=== PATIENT | female | born 1970 | race Caucasian/White ===

== ENCOUNTER 2017-09-12 15:19 | Emergency (ER) | payer OTHER ==
--- NOTE | 2017-09-12 16:56 | EDM.PDOC ---
ED HPI GENERAL MEDICAL PROBLEM - General Chief Complaint: Medication Administration Stated Complaint: MED REFILL Time Seen by Provider: 09/12/17 16:52 Source of Information: Reports: Patient - History of Present Illness INITIAL COMMENTS - FREE TEXT/NARRATIVE: HISTORY AND PHYSICAL: History of present illness: [ Patient presents with history of asthma, she has ran out of her medications Ventolin and albuterol neb treatments she requests refills She states that she does feel little chest tightness but she has been out of medicine for several days she takes expanding occasions routinely on a scheduled basis due to her asthma she is offered a chest x-ray which he refused No fever nausea vomiting chills sweats no chest pain shortness breath headache dizziness palpitation about a urine symptoms ] Is in town on vacation and plans to return to [facility] [place] Review of systems: As per history of present illness and below otherwise all systems reviewed and negative. Past medical history: As per history of present illness and as reviewed below otherwise noncontributory. Surgical history: As per history of present illness and as reviewed below otherwise noncontributory. Social history: No reported history of drug or alcohol abuse. Family history: As per history of present illness and as reviewed below otherwise noncontributory. Physical exam: HEENT: Atraumatic, normocephalic, pupils reactive, negative for conjunctival pallor or scleral icterus, mucous membranes moist, throat clear, neck supple, nontender, trachea midline. Lungs: Clear to auscultation, breath sounds equal bilaterally, chest nontender. Heart: S1S2, regular, negative for clicks, rubs, or JVD. Abdomen: Soft, nondistended, nontender. Negative for masses or hepatosplenomegaly. Negative for costovertebral tenderness. Pelvis: Stable nontender. Genitourinary: Deferred. Rectal: Deferred. Extremities: Atraumatic, negative for cords or calf pain. Neurovascular unremarkable. Neuro: Awake, alert, oriented. Cranial nerves II through XII unremarkable. Cerebellum unremarkable. Motor and sensory unremarkable throughout. Exam nonfocal. Diagnostics: []Patient refuses any diagnostic workup/imaging Therapeutics: []HFA 200 count 4 times a day when necessary Albuterol neb one box 40 count Impression: [Chronic asthma] Definitive disposition and diagnosis as appropriate pending reevaluation and review of above. 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 Musculoskeletal History: Reports: None Neurological History: Reports: None Psychiatric History: Reports: None Endocrine/Metabolic History: Reports: None Hematologic History: Reports: None Immunologic History: Reports: None Oncologic (Cancer) History: Reports: None Dermatologic History: Reports: None - Infectious Disease History Infectious Disease History: Reports: Chicken Pox - Past Surgical History Head Surgeries/Procedures: Reports: None Female Surgical History: Reports: Tubal Ligation Social & Family History - Family History Family Medical History: Noncontributory - Tobacco Use Smoking Status *Q: Never Smoker Second Hand Smoke Exposure: No - Caffeine Use Caffeine Use: Reports: Energy Drinks - Alcohol Use Days Per Week of Alcohol Use: 7 Number of Drinks Per Day: 1 Total Drinks Per Week: 7 - Recreational Drug Use Recreational Drug Use: No - Living Situation & Occupation Living situation: Reports: Occupation: Employed ED ROS GENERAL - Review of Systems Review Of Systems: ROS reveals no pertinent complaints other than HPI. ED EXAM, GENERAL - Physical Exam Exam: See Below Course - Vital Signs Last Recorded V/S: Last Vital Signs Temp 96.9 F 09/12/17 16:03 Pulse 92 09/12/17 16:03 Resp 14 09/12/17 16:03 BP 132/102 H 09/12/17 16:03 Pulse Ox 95 09/12/17 16:03 Departure - Departure Time of Disposition: 16:55 Disposition: Home, Self-Care 01 Condition: Good Clinical Impression: Asthma Qualifiers: Asthma severity: moderate persistent Asthma complication type: uncomplicated Qualified Code(s): J45.40 - Moderate persistent asthma, uncomplicated - Discharge Information Instructions: Medicine Refill at the Emergency Department Referrals: PCP,None [Primary Care Provider] - Forms: ED Department Discharge Additional Instructions: Medications as prescribed Return if symptoms persist or worsen Follow-up with primary care on return home next week The following information is given to patients seen in the emergency department who are being discharged to home. This information is to outline your options for follow-up care. We provide all patients seen in our emergency department with a follow-up referral. The need for follow-up, as well as the timing and circumstances, are variable depending upon the specifics of your emergency department visit. If you don't have a primary care physician on staff, we will provide you with a referral. We always advise you to contact your personal physician following an emergency department visit to inform them of the circumstance of the visit and for follow-up with them and/or the need for any referrals to a consulting specialist. The emergency department will also refer you to a specialist when appropriate. This referral assures that you have the opportunity for follow-up care with a specialist. All of these measure are taken in an effort to provide you with optimal care, which includes your follow-up. Under all circumstances we always encourage you to contact your private physician who remains a resource for coordinating your care. When calling for follow-up care, please make the office aware that this follow-up is from your recent emergency room visit. If for any reason you are refused follow-up, please contact the [facility] emergency department at and asked to speak to the emergency department charge nurse.
[2017-09-12 17:01] VITALS: BP 130/78
== END 2017-09-12 16:56 | disposition home or self-care (01) ==
LOC: MW.ED 15:19
DX: J45.40 Moderate persistent asthma, uncomplicated (principal)
CPT/HCPCS: 99281

== ENCOUNTER 2018-04-16 05:12 | Emergency (ER) | payer MEDICAID, OTHER ==
[2018-04-16] MEDS ORDERED: Albuterol/Ipratropium 3.0-0.5 MG/3 ML Neb Soln NEB ONE (05:32)
[2018-04-16] MEDS ORDERED: methylPREDNISolone Sodium Succinate 125 MG/2 ML SDV IM ONE (05:32)
--- NOTE | 2018-04-16 05:36 | EDM.PDOC ---
ED HPI GENERAL MEDICAL PROBLEM - General Chief Complaint: Respiratory Problem Stated Complaint: ASTHMA Time Seen by Provider: 04/16/18 05:19 - History of Present Illness INITIAL COMMENTS - FREE TEXT/NARRATIVE: HISTORY AND PHYSICAL: History of present illness: The patient is a 47-year-old female with a history of asthma who is here from [facility] and states that she ran out of her Combivent and Atrovent about one week ago and has had progressively worsening shortness of breath dry hacking cough and wheezing. The patient has a nebulizer machine with albuterol she has been using but she feels that without the Atrovent her asthma has flared up. 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 Patient says that she does not have a local provider here even though she plans on staying here for some time. She feels that if she had her inhalers that this would not have flared up. The patient does not smoke nor is she around smokers on a regular basis Review of systems: As per history of present illness and below otherwise all systems reviewed and negative. Past medical history: As per history of present illness and as reviewed below otherwise noncontributory. Surgical history: As per history of present illness and as reviewed below otherwise noncontributory. Social history: No reported history of drug or alcohol abuse. Family history: As per history of present illness and as reviewed below otherwise noncontributory. Physical exam: General: Well-developed well-nourished thin female who is nontoxic and has a dry hacking cough on my evaluation. Vital signs are noted by me HEENT: Atraumatic, normocephalic, negative for conjunctival pallor or scleral icterus, mucous membranes moist, throat clear, neck supple, nontender, trachea midline. Lungs: Bilateral expiratory wheezing with decent air exchange bilaterally and no work of breathing or sensory muscle use, breath sounds equal bilaterally, chest nontender. Heart: S1S2, regular rate and rhythm no murmurs Abdomen: Soft, nondistended, nontender. NABS. Pelvis: Deferred Genitourinary: Deferred. Rectal: Deferred. Extremities: Atraumatic, negative for cords or calf pain. Neurovascular unremarkable. Neuro: Awake, alert, oriented. Cranial nerves II through XII unremarkable. Cerebellum unremarkable. Motor and sensory unremarkable throughout. Exam nonfocal. Diagnostics: [] Therapeutics: DuoNeb Solu-Medrol After the DuoNeb the patient is clear without any wheezing and feels much improved. I will give her refills on her Combivent and Advair as well as of the role for her nebulizer machine and prednisone taper. Impression: Acute asthma exacerbation, medication refill Definitive disposition and diagnosis as appropriate pending reevaluation and review of above. headache Pain Score (Numeric/FACES): 8 - Related Data Allergies Allergy/AdvReac Type Severity Reaction Status Date / Time No Known Allergies Allergy Verified 04/16/18 05:25 Home Meds: Home Meds Albuterol [Ventolin HFA] 2 puff INH Q6H PRN #1 inhaler 02/15/16 [Rx] Fluticasone/Salmeterol [Advair Hfa 230-21 Mcg Inhaler] 1 puff INH BID 09/12/17 [ History] Albuterol/Ipratropium [Combivent Respimat] 1 inh INH QID 04/16/18 [History] Past Medical History HEENT History: Reports: None Cardiovascular History: Reports: None Respiratory History: Reports: Asthma Gastrointestinal History: Reports: None Genitourinary History: Reports: None 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 Musculoskeletal History: Reports: None Neurological History: Reports: None Psychiatric History: Reports: None Endocrine/Metabolic History: Reports: None Hematologic History: Reports: None Immunologic History: Reports: None Oncologic (Cancer) History: Reports: None Dermatologic History: Reports: None - Infectious Disease History Infectious Disease History: Reports: Chicken Pox - Past Surgical History Head Surgeries/Procedures: Reports: None Respiratory Surgical History: Reports: None Female Surgical History: Reports: Tubal Ligation Social & Family History - Family History Family Medical History: Noncontributory - Tobacco Use Smoking Status *Q: Never Smoker Second Hand Smoke Exposure: No - Caffeine Use Caffeine Use: Reports: Coffee, Soda - Recreational Drug Use Recreational Drug Use: Yes - Living Situation & Occupation Living situation: Reports: Occupation: Employed ED ROS GENERAL - Review of Systems Review Of Systems: ROS reveals no pertinent complaints other than HPI. ED EXAM, GENERAL - Physical Exam Exam: See Below (See dictation) Course - Vital Signs Last Recorded V/S: Last Vital Signs Temp 36.0 C 04/16/18 05:22 Pulse 98 04/16/18 05:22 Resp 21 H 04/16/18 05:22 BP 155/98 H 04/16/18 05:22 Pulse Ox 92 L 04/16/18 05:22 - Orders/Labs/Meds Orders: Active Orders 24 hr Category Date Time Status RT Aerosol Therapy [RC] ASDIRECTED Care 04/16/18 05:33 Active Meds: Medications Discontinued Medications Generic Name Dose Route Start Last Admin Trade Name Anuj PRN Reason Stop Dose Admin Albuterol/Ipratropium 3 ml 04/16/18 05:32 04/16/18 05:37 Duoneb 3.0-0.5 Mg/3 Ml NEB 04/16/18 05:33 3 ml ONETIME ONE Administration Methylprednisolone Sodium Succinate 125 mg 04/16/18 05:32 04/16/18 05:35 Solu-Medrol IM 04/16/18 05:33 125 mg ONETIME ONE Administration Departure - Departure Time of Disposition: 06:02 Disposition: Home, Self-Care 01 Condition: Good Clinical Impression: Medication refill Acute asthma exacerbation Qualifiers: Asthma severity: moderate Asthma persistence: unspecified Qualified Code(s): J45.901 - Unspecified asthma with (acute) exacerbation - Discharge Information Referrals: PCP,None [Primary Care Provider] - Forms: ED Department Discharge Additional Instructions: The following information is given to patients seen in the emergency department who are being discharged to home. This information is to outline your options for follow-up care. We provide all patients seen in our emergency department with a follow-up referral. The need for follow-up, as well as the timing and circumstances, are variable depending upon the specifics of your emergency department visit. If you don't have a primary care physician on staff, we will provide you with a referral. We always advise you to contact your personal physician following an emergency department visit to inform them of the circumstance of the visit and for follow-up with them and/or the need for any referrals to a consulting specialist. The emergency department will also refer you to a specialist when appropriate. This referral assures that you have the opportunity for followup care with a specialist. All of these measure are taken in an effort to provide you with optimal care, which includes your followup. Under all circumstances we always encourage you to contact your private physician who remains a resource for coordinating your care. When calling for followup care, please make the office aware that this follow-up is from your recent emergency room visit. If for any reason you are refused follow-up, please contact the [facility] emergency department at and ask to speak to the emergency department charge nurse. [facility] Primary care- Internal Medicine and Family [address] [address] Please use all medications as prescribed and please call and schedule a follow- up appointment in our clinic. Call at 8:00 this morning and see your emergency department patient and they will schedule a follow-up in the next few days. Return to ER as needed and as discussed. Please try to avoid environmental irritants and push hydration. - My Orders Last 24 Hours: My Active Orders 04/16/18 05:33 RT Aerosol Therapy [RC] ASDIRECTED - Assessment/Plan Last 24 Hours: My Active Orders 04/16/18 05:33 RT Aerosol Therapy [RC] ASDIRECTED
[2018-04-16 06:14] VITALS: BP 146/97
== END 2018-04-16 06:14 | disposition home or self-care (01) ==
LOC: MW.ED 05:12
DX: J45.901 Unspecified asthma with (acute) exacerbation (principal); Z76.0 Encounter for issue of repeat prescription; Z79.899 Other long term (current) drug therapy
CPT/HCPCS: 99285; J2930

== ENCOUNTER 2018-04-23 00:27 | Emergency (ER) | payer MEDICAID ==
--- NOTE | 2018-04-23 01:05 | EDM.PDOC ---
ED HPI GENERAL MEDICAL PROBLEM - General Chief Complaint: General Stated Complaint: ASTHMA Time Seen by Provider: 04/23/18 00:55 Source of Information: Reports: Patient History Limitations: Reports: No Limitations - History of Present Illness INITIAL COMMENTS - FREE TEXT/NARRATIVE: HISTORY AND PHYSICAL: History of present illness: 47-year-old female presenting the emergency department with chief complaint of running out of medication with past medical history of asthma. Patient has a history of asthma and is here from [facility]. She ran out of her albuterol and states that she still has Combivent left. She does need a new prescription for the albuterol nebulized solution. Currently denies any significant shortness of breath and has been doing okay with her medications. She plans to see a primary care provider this week. Main reason why she came in is because she only has 1 albuterol via left and she is worried that she may have not be able to make it through the night if she has any exacerbations. Currently denies any chest pain, palpitations, shortness breath, syncopal axis, no focal deficits. Review of systems: As per history of present illness and below otherwise all systems reviewed and negative. Past medical history: As per history of present illness and as reviewed below otherwise noncontributory. Surgical history: As per history of present illness and as reviewed below otherwise noncontributory. Social history: No reported history of drug or alcohol abuse. Family history: As per history of present illness and as reviewed below otherwise noncontributory. Physical exam: HEENT: Atraumatic, normocephalic, pupils reactive, negative for conjunctival pallor or scleral icterus, mucous membranes moist, throat clear, neck supple, nontender, trachea midline. Lungs: Clear to auscultation, breath sounds equal bilaterally, chest nontender. Heart: S1S2, regular, negative for clicks, rubs, or JVD. Abdomen: Soft, nondistended, nontender. Negative for masses or hepatosplenomegaly. Negative for costovertebral tenderness. Pelvis: Stable nontender. Genitourinary: Deferred. Rectal: Deferred. Extremities: Atraumatic, negative for cords or calf pain. Neurovascular unremarkable. Neuro: Awake, alert, oriented. Cranial nerves II through XII unremarkable. Cerebellum unremarkable. Motor and sensory unremarkable throughout. Exam nonfocal. Diagnostics: [] Therapeutics: Albuterol neb Impression: Asthma Noncompliance Plan: Patient has been seen here previously and has not made a follow-up appointment yet. She states she is not able to afford some of the medications including Advair. She states that she is taking albuterol and Combivent did refill her albuterol nebulized solution prescription and instructed her to follow-up with primary care this week which she stated she would. Instructed to return department if she had any new or worsening symptoms. Definitive disposition and diagnosis as appropriate pending reevaluation and review of above. - Related Data Allergies Allergy/AdvReac Type Severity Reaction Status Date / Time No Known Allergies Allergy Verified 04/23/18 00:38 Home Meds: Home Meds Albuterol [Ventolin HFA] 2 puff INH Q6H PRN #1 inhaler 02/15/16 [Rx] Fluticasone/Salmeterol [Advair Hfa 230-21 Mcg Inhaler] 1 puff INH BID 09/12/17 [ History] Albuterol/Ipratropium [Combivent Respimat] 1 inh INH QID 04/16/18 [History] Past Medical History HEENT History: Reports: None Cardiovascular History: Reports: Hypertension Respiratory History: Reports: Asthma Gastrointestinal History: Reports: None Genitourinary History: Reports: None 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 Musculoskeletal History: Reports: None Neurological History: Reports: None Psychiatric History: Reports: None Endocrine/Metabolic History: Reports: None Hematologic History: Reports: None Immunologic History: Reports: None Oncologic (Cancer) History: Reports: None Dermatologic History: Reports: None - Infectious Disease History Infectious Disease History: Reports: Chicken Pox - Past Surgical History Head Surgeries/Procedures: Reports: None Respiratory Surgical History: Reports: None Female Surgical History: Reports: Tubal Ligation Social & Family History - Family History Family Medical History: Noncontributory - Tobacco Use Smoking Status *Q: Never Smoker - Caffeine Use Caffeine Use: Reports: Coffee, Soda - Recreational Drug Use Recreational Drug Use: No - Living Situation & Occupation Living situation: Reports: Occupation: Employed ED ROS GENERAL - Review of Systems Review Of Systems: ROS reveals no pertinent complaints other than HPI. ED EXAM, GENERAL - Physical Exam Exam: See Below Course - Vital Signs Last Recorded V/S: Last Vital Signs Temp 96.9 F 04/23/18 00:39 Pulse 94 04/23/18 00:39 Resp 18 04/23/18 00:39 BP 164/107 H 04/23/18 00:39 Pulse Ox 96 04/23/18 00:39 - Orders/Labs/Meds Meds: Medications Discontinued Medications Generic Name Dose Route Start Last Admin Trade Name Anuj PRN Reason Stop Dose Admin Albuterol 2.5 mg 04/23/18 01:07 Proventil Neb Soln NEB 04/23/18 01:08 ONETIME ONE Departure - Departure Time of Disposition: :17 Disposition: Home, Self-Care 01 Condition: Good Clinical Impression: Asthma Qualifiers: Asthma severity: moderate persistent Asthma complication type: uncomplicated Qualified Code(s): J45.40 - Moderate persistent asthma, uncomplicated - Discharge Information Referrals: PCP,None [Primary Care Provider] - Forms: ED Department Discharge Additional Instructions: My general discharge The following information is given to patients seen in the emergency department who are being discharged to home. This information is to outline your options for follow-up care. We provide all patients seen in our emergency department with a follow-up referral. The need for follow-up, as well as the timing and circumstances, are variable depending upon the specifics of your emergency department visit. If you don't have a primary care physician on staff, we will provide you with a referral. We always advise you to contact your personal physician following an emergency department visit to inform them of the circumstance of the visit and for follow-up with them and/or the need for any referrals to a consulting specialist. The emergency department will also refer you to a specialist when appropriate. This referral assures that you have the opportunity for follow-up care with a specialist. All of these measure are taken in an effort to provide you with optimal care, which includes your follow-up. Under all circumstances we always encourage you to contact your private physician who remains a resource for coordinating your care. When calling for follow-up care, please make the office aware that this follow-up is from your recent emergency room visit. If for any reason you are refused follow-up, please contact the [facility] Emergency Department at and asked to speak to the emergency department charge nurse. [facility] Primary Care [address] [place] [id number] [facility] [address] [place] [id number] Please follow-up with primary care as we discussed. Take medications as prescribed. Return emergency department if any new or worsening symptoms.
[2018-04-23] MEDS ORDERED: Albuterol 0.083% 2.5 MG/3 ML Neb Soln NEB ONE ×2 (01:07→01:13)
[2018-04-23] MEDS ORDERED: Albuterol 0.083% 2.5 MG/3 ML Neb Soln ONE (01:26)
[2018-04-23 01:34] VITALS: BP 118/85
== END 2018-04-23 01:30 | disposition home or self-care (01) ==
LOC: MW.ED 00:27
DX: J45.40 Moderate persistent asthma, uncomplicated (principal); I10 Essential (primary) hypertension; Z91.19 Patient's noncompliance with other medical treatment and regimen
CPT/HCPCS: 94640; 99282-25

== ENCOUNTER 2018-04-24 19:48 | Observation (INO) | payer MEDICAID ==
[2018-04-24] MEDS ORDERED: Albuterol/Ipratropium 3.0-0.5 MG/3 ML Neb Soln ONE (19:52)
[2018-04-24] MEDS ORDERED: Albuterol/Ipratropium 3.0-0.5 MG/3 ML Neb Soln NEB ONE ×2 (20:05→20:28)
[2018-04-24] MEDS ORDERED: methylPREDNISolone Sodium Succinate 125 MG/2 ML SDV IVPUSH ONE (20:05)
--- NOTE | 2018-04-24 20:05 | EDM.PDOC ---
ED HPI GENERAL MEDICAL PROBLEM - General Chief Complaint: Respiratory Problem Stated Complaint: HAVING AN ASTEMIA ATTACK Time Seen by Provider: 04/24/18 19:55 Source of Information: Reports: Patient History Limitations: Reports: No Limitations - History of Present Illness INITIAL COMMENTS - FREE TEXT/NARRATIVE: HISTORY AND PHYSICAL: History of present illness: 47-year-old female presenting to the emergency department with chief complaint of shortness of breath/asthma exacerbation. Patient was seen two evenings ago for a refill on her prescription of albuterol. At that time she states that she has been unable to afford medications and did not follow-up with her primary care provider when she was seen last in the ER. She has been unable to get her Advair and has been primarily using Albuterol neb treatments. That evening she was given 1 treatment DuoNeb as well as a additional DuoNeb for home. Last evening she did call paramedics for sob and was given a duoneb and then refused transport as she said that her boss would be bringing her meds to her the following morning. She was given an additional duoneb for later by the paramedics. States that her boss never brought her meds this morning like he was supposed to so she progressively got worse sob throughout the day till she drove herself in to the hospital. She denies any chest pain, palpitations, syncopal episodes, focal episodes. On initial exam oxygen sat is 92%, there is generalized wheezing and poor air movement in all lung kong. Patient is in tripod position but airway is secure. Patient was given 1 DuoNeb with improved oxygenation to 95%. O2 per nasal cannula administered. And one additional DuoNeb ordered. She was also given 125 mg Solu-Medrol IV. 2024- Reexamined patient, improving but still generalized wheezing throughout, 4 mg IV Mg ordered and additional duo-neb. 2099- Patient improved and feeling better generally. Still wheezing throughout but much better air movement. Review of systems: As per history of present illness and below otherwise all systems reviewed and negative. Past medical history: As per history of present illness and as reviewed below otherwise noncontributory. Surgical history: As per history of present illness and as reviewed below otherwise noncontributory. Social history: No reported history of drug or alcohol abuse. Family history: As per history of present illness and as reviewed below otherwise noncontributory. Physical exam: HEENT: Atraumatic, normocephalic, pupils reactive, negative for conjunctival pallor or scleral icterus, mucous membranes moist, throat clear, neck supple, nontender, trachea midline. Lungs: generalized decreased air movement in all lung kong with significant wheezing throughout., chest nontender. Heart: S1S2, regular, negative for clicks, rubs, or JVD. Abdomen: Soft, nondistended, nontender. Negative for masses or hepatosplenomegaly. Negative for costovertebral tenderness. Pelvis: Stable nontender. Genitourinary: Deferred. Rectal: Deferred. Extremities: Atraumatic, negative for cords or calf pain. Neurovascular unremarkable. Neuro: Awake, alert, oriented. Cranial nerves II through XII unremarkable. Cerebellum unremarkable. Motor and sensory unremarkable throughout. Exam nonfocal. Diagnostics: CBC, CMP, chest x-ray Therapeutics: DuoNeb 2, Solu-Medrol 25 mg IV 1 Impression: Acute asthma exacerbation Plan: Patient received a total of 3 DuoNeb treatments as well as 125 mg IV Solu- Medrol and 4 mg mag sulfate IV. She improved but was still having considerable amount of wheezing on exam. Secondary to her exacerbation in multiple ER visits I discussed admission with her which she would like. Discussed the case with Lily hospitalist, who is in agreement and accepts patient for observation asthma exacerbation. Definitive disposition and diagnosis as appropriate pending reevaluation and review of above. - Related Data Allergies Allergy/AdvReac Type Severity Reaction Status Date / Time No Known Allergies Allergy Verified 04/23/18 00:38 Home Meds: Home Meds Albuterol [Ventolin HFA] 2 puff INH Q6H PRN #1 inhaler 02/15/16 [Rx] Fluticasone/Salmeterol [Advair Hfa 230-21 Mcg Inhaler] 1 puff INH BID 09/12/17 [ History] Albuterol/Ipratropium [Combivent Respimat] 1 inh INH QID 04/16/18 [History] Past Medical History HEENT History: Reports: None Cardiovascular History: Reports: Hypertension Respiratory History: Reports: Asthma Gastrointestinal History: Reports: None Genitourinary History: Reports: None SCIENCE WRITER History: Reports: None Musculoskeletal History: Reports: None Neurological History: Reports: None Psychiatric History: Reports: None Endocrine/Metabolic History: Reports: None Hematologic History: Reports: None Immunologic History: Reports: None Oncologic (Cancer) History: Reports: None Dermatologic History: Reports: None - Infectious Disease History Infectious Disease History: Reports: Chicken Pox - Past Surgical History Head Surgeries/Procedures: Reports: None Respiratory Surgical History: Reports: None Female Surgical History: Reports: Tubal Ligation Social & Family History - Family History Family Medical History: Noncontributory - Caffeine Use Caffeine Use: Reports: Coffee, Soda - Living Situation & Occupation Living situation: Reports: Occupation: Employed ED ROS GENERAL - Review of Systems Review Of Systems: ROS reveals no pertinent complaints other than HPI. ED EXAM, GENERAL - Physical Exam Exam: See Below Course - Vital Signs Last Recorded V/S: Last Vital Signs Temp 97.3 F 04/24/18 20:08 Pulse 107 H 04/24/18 20:27 Resp 24 H 04/24/18 20:27 BP 174/111 H 04/24/18 20:27 Pulse Ox 100 04/24/18 20:27 - Orders/Labs/Meds Orders: Active Orders 24 hr Category Date Time Status Admission Status [Patient Status] [ADT] Stat ADT 04/24/18 21:12 Ordered RT Aerosol Therapy [RC] ASDIRECTED Care 04/24/18 20:06 Active RT Aerosol Therapy [RC] ASDIRECTED Care 04/24/18 20:29 Active CXR [Chest 1V Frontal] [CR] Stat Exams 04/24/18 21:08 Ordered CBC WITH AUTO DIFF [HEME] Stat Lab 04/24/18 21:07 Ordered COMPREHENSIVE METABOLIC PN,CMP [CHEM] Stat Lab 04/24/18 21:07 Ordered Magnesium Sulfate/Water [Magnesium Sulfate 4 GM in Med 04/24/18 20:28 Active Water 100 ML] 4 gm Premix Bag 1 bag IV ONETIME Medication Orders Magnesium Sulfate 4 gm/ Premix 100 mls @ 25 mls/hr IV ONETIME ONE Stop: 04/25/18 00:27 Last Admin: 04/24/18 20:37 Dose: 25 mls/hr Meds: Medications Generic Name Dose Route Start Last Admin Trade Name Freq PRN Reason Stop Dose Admin Magnesium Sulfate 4 gm/ Premix 100 mls @ 25 mls/hr 04/24/18 20:28 04/24/18 20 :37 IV 04/25/18 00:27 25 mls/hr ONETIME ONE Administration Discontinued Medications Generic Name Dose Route Start Last Admin Trade Name Anuj PRN Reason Stop Dose Admin Albuterol/Ipratropium Confirm 04/24/18 19:52 04/24/18 20:18 Duoneb 3.0-0.5 Mg/3 Ml Administered 04/24/18 19:53 3 ml Dose Administration 3 ml .ROUTE .STK-MED ONE Albuterol/Ipratropium 3 ml 04/24/18 20:05 04/24/18 20:15 Duoneb 3.0-0.5 Mg/3 Ml NEB 04/24/18 20:06 3 ml ONETIME ONE Administration Albuterol/Ipratropium 3 ml 04/24/18 20:28 04/24/18 20:38 Duoneb 3.0-0.5 Mg/3 Ml NEB 04/24/18 20:29 3 ml ONETIME ONE Administration Ketorolac Tromethamine 30 mg 04/24/18 20:07 04/24/18 20:19 Toradol IVPUSH 04/24/18 20:08 30 mg ONETIME ONE Administration Methylprednisolone Sodium Succinate 125 mg 04/24/18 20:05 04/24/18 20:15 Solu-Medrol IVPUSH 04/24/18 20:06 125 mg ONETIME ONE Administration Departure - Departure Time of Disposition: 21:20 Disposition: Home, Self-Care 01 Condition: Good Clinical Impression: Asthma exacerbation Qualifiers: Asthma severity: moderate Asthma persistence: unspecified Qualified Code(s): J45.901 - Unspecified asthma with (acute) exacerbation Clinical Impression: (Ruled Out): Gastroesophageal reflux disease - Discharge Information Forms: ED Department Discharge - My Orders Last 24 Hours: My Active Orders 04/24/18 20:06 RT Aerosol Therapy [RC] ASDIRECTED 04/24/18 20:28 Magnesium Sulfate/Water [Magnesium Sulfate 4 GM in Water 100 ML] 4 gm Premix Bag 1 bag IV ONETIME 04/24/18 20:29 RT Aerosol Therapy [RC] ASDIRECTED 04/24/18 21:07 CBC WITH AUTO DIFF [HEME] Stat COMPREHENSIVE METABOLIC PN,CMP [CHEM] Stat 04/24/18 21:08 CXR [Chest 1V Frontal] [CR] Stat 04/24/18 21:12 Admission Status [Patient Status] [ADT] Stat - Assessment/Plan Last 24 Hours: My Active Orders 04/24/18 20:06 RT Aerosol Therapy [RC] ASDIRECTED 04/24/18 20:28 Magnesium Sulfate/Water [Magnesium Sulfate 4 GM in Water 100 ML] 4 gm Premix Bag 1 bag IV ONETIME 04/24/18 20:29 RT Aerosol Therapy [RC] ASDIRECTED 04/24/18 21:07 CBC WITH AUTO DIFF [HEME] Stat COMPREHENSIVE METABOLIC PN,CMP [CHEM] Stat 04/24/18 21:08 CXR [Chest 1V Frontal] [CR] Stat 04/24/18 21:12 Admission Status [Patient Status] [ADT] Stat
[2018-04-24] MEDS ORDERED: Ketorolac 30 MG/ML SDV IVPUSH ONE (20:07)
[2018-04-24] MEDS ORDERED: Magnesium Sulfate/Water 4 GM in Premix Bag 1 BAG IV ONE (20:28)
[2018-04-24 21:25] LABS: CHLORIDE,CL 106 mmol/L (98-107); SODIUM,NA 142 mmol/L (136-145)
[2018-04-24] MEDS ORDERED: Enoxaparin 40 MG/0.4 ML Syringe SUBCUT SCH (22:00)
--- NOTE | 2018-04-24 22:01 | PCM.HP ---
H&P History of Present Illness - General Date of Service: 04/24/18 Admit Problem/Dx: Admission Diagnosis/Problem Admission Diagnosis/Problem Asthma with acute exacerbation in adult - History of Present Illness Initial Comments - Free Text/Narative: 47 yo female with pmh of Asthma who recently moved to the area. She ran out of her Advair a month ago and has not been able to afford to refill it. Since then she has had multiple trips to the ED due to uncontrolled asthma. She has been using an albuterol inhaler. Today she developed shortness of breath, wheezing and chest tightness. She was given duonebs in the ED with some improvement in her shortness of breath. - Related Data Allergies/Adverse Reactions: Allergies Allergy/AdvReac Type Severity Reaction Status Date / Time No Known Allergies Allergy Verified 04/23/18 00:38 Home Medications: Home Meds Albuterol [Ventolin HFA] 2 puff INH Q6H PRN #1 inhaler 02/15/16 [Rx] Albuterol/Ipratropium [Combivent Respimat] 1 inh INH QID 04/16/18 [History] Fluticasone/Salmeterol [Advair Hfa 230-21 Mcg Inhaler] 1 puff INH BID #1 aer.w.adap 04/25/18 [Rx] predniSONE [Prednisone] 40 mg PO DAILY #8 tablet 04/25/18 [Rx] Past Medical History HEENT History: Reports: None Cardiovascular History: Reports: Hypertension Respiratory History: Reports: Asthma Gastrointestinal History: Reports: None Genitourinary History: Reports: None COYOTE HUNTER History: Reports: None Musculoskeletal History: Reports: None Neurological History: Reports: None Psychiatric History: Reports: None Endocrine/Metabolic History: Reports: None Hematologic History: Reports: None Immunologic History: Reports: None Oncologic (Cancer) History: Reports: None Dermatologic History: Reports: None - Infectious Disease History Infectious Disease History: Reports: Chicken Pox - Past Surgical History Head Surgeries/Procedures: Reports: None Respiratory Surgical History: Reports: None Female Surgical History: Reports: Tubal Ligation Social & Family History - Family History Family Medical History: Noncontributory - Tobacco Use Smoking Status *Q: Unknown Ever Smoked - Caffeine Use Caffeine Use: Reports: Coffee, Soda - Living Situation & Occupation Living situation: Reports: Occupation: Employed H&P Review of Systems - Review of Systems: Review Of Systems: ROS reveals no pertinent complaints other than HPI. Exam - Exam Exam: See Below - Vital Signs Vital Signs: Last Vital Signs Temp 36.3 C 04/24/18 20:08 Pulse 92 04/24/18 21:30 Resp 18 04/24/18 21:30 BP 138/87 04/24/18 21:30 Pulse Ox 99 04/24/18 21:30 Weight: 61.235 kg - Exam Lungs: Normal Respiratory Effort, Wheezing Cardiovascular: Regular Rate, Regular Rhythm GI/Abdominal Exam: Normal Bowel Sounds, Soft, Non-Tender Extremities: Non-Tender, No Pedal Edema Skin: Warm, Dry, Intact Neurological: No: Focal Deficit - Patient Data Lab Results Last 24 hrs: Laboratory Results - last 24 hr 04/24/18 04/24/18 Range/Units 20:05 20:05 WBC 10.80 (4.0-11.0) K/uL RBC 5.48 (4.30-5.90) M/uL Hgb 16.1 H (12.0-16.0) g/dL Hct 47.9 H (36.0-46.0) % MCV 87.4 (80.0-98.0) fL MCH 29.4 (27.0-32.0) pg MCHC 33.6 (31.0-37.0) g/dL RDW Std Deviation 46.2 (28.0-62.0) fl RDW Coeff of Gianluca 15 (11.0-15.0) % Plt Count 320 (150-400) K/uL MPV 8.90 (7.40-12.00) fL Add Manual Diff YES Neutrophils % (Manual) 39 L (48.0-80.0) % Lymphocytes % (Manual) 35 (16.0-40.0) % Monocytes % (Manual) 8 (0.0-15.0) % Eosinophils % (Manual) 18 H (0.0-7.0) % Nucleated RBC % 0.0 /100WBC Absolute Seg Neuts 4.2 (1.4-5.7) Lymphocytes # (Manual) 3.8 H (0.6-2.4) Monocytes # (Manual) 0.9 H (0.0-0.8) Eosinophils # (Manual) 1.9 H (0.0-0.7) Nucleated RBCs # 0 K/uL Sodium 142 (136-145) mmol/L Potassium 3.4 L (3.5-5.1) mmol/L Chloride 106 (98-107) mmol/L Carbon Dioxide 28.2 (21.0-32.0) mmol/L BUN 13 (7.0-18.0) mg/dL Creatinine 0.9 (0.6-1.0) mg/dL Est Cr Clr Drug Dosing 74.70 mL/min Estimated GFR (MDRD) > 60.0 ml/min Glucose 83 (74-106) mg/dL Calcium 8.4 L (8.5-10.1) mg/dL Total Bilirubin 0.2 (0.2-1.0) mg/dL AST 18 (15-37) IU/L ALT 29 (14-63) IU/L Alkaline Phosphatase 70 (46-116) U/L Total Protein 6.9 (6.4-8.2) g/dL Albumin 3.6 (3.4-5.0) g/dL Globulin 3.3 (2.0-3.5) g/dL Albumin/Globulin Ratio 1.1 L (1.3-2.8) Result Diagrams: 04/25/18 05:30 04/25/18 05:30 Problem List Initiated/Reviewed/Updated: Yes Orders Last 24hrs: Active Orders 24 hr Category Date Time Status Admission Status [Patient Status] [ADT] Stat ADT 04/24/18 21:12 Active Oxygen Therapy [RC] PRN Care 04/24/18 21:56 Ordered RT Aerosol Therapy [RC] ASDIRECTED Care 04/24/18 20:06 Active RT Aerosol Therapy [RC] ASDIRECTED Care 04/24/18 20:29 Active RT Aerosol Therapy [RC] ASDIRECTED Care 04/24/18 21:57 Ordered RT Post Treatment Assessment [RC] Click to Edit Care 04/24/18 21:56 Ordered RT Pre-Treatment Assessment [RC] Click to Edit Care 04/24/18 21:56 Ordered Up ad Betzy [RC] ASDIRECTED Care 04/24/18 21:56 Ordered VTE/DVT Education [RC] PER UNIT ROUTINE Care 04/24/18 21:56 Ordered Vital Signs [RC] Q4H Care 04/24/18 21:56 Ordered Regular Diet [DIET] Diet 04/24/18 Breakfast Ordered CXR [Chest 1V Frontal] [CR] Stat Exams 04/24/18 21:08 Taken BASIC METABOLIC PANEL,BMP [CHEM] AM Lab 04/25/18 05:11 Ordered CBC W/O DIFF,HEMOGRAM [HEME] AM Lab 04/25/18 05:11 Ordered Albuterol/Ipratropium [DuoNeb 3.0-0.5 MG/3 ML] Med 04/25/18 00:00 Ordered 3 ml NEB Q6HRRT Enoxaparin [Lovenox] Med 04/24/18 22:00 Ordered 40 mg SUBCUT Q24H Fluticasone/Salmeterol [Advair Diskus 250-50] Med 04/25/18 09:00 Ordered 1 puff INH BID Magnesium Sulfate/Water [Magnesium Sulfate 4 GM in Med 04/24/18 20:28 Active Water 100 ML] 4 gm Premix Bag 1 bag IV ONETIME methylPREDNISolone Sod Succ [Solu-MEDROL] Med 04/25/18 03:00 Ordered 125 mg IVPUSH Q8H Sequential Compression Device [OM.PC] Per Unit Routine Oth 04/24/18 21:56 Ordered Resuscitation Status Routine Resus Stat 04/24/18 21:56 Ordered Medication Orders Magnesium Sulfate 4 gm/ Premix 100 mls @ 25 mls/hr IV ONETIME ONE Stop: 04/25/18 00:27 Last Admin: 04/24/18 20:37 Dose: 25 mls/hr Assessment/Plan Comment:: 47 yo female admitted with asthma exacerbation. We will treat with duonebs and solumedrol overnight and this morning she was requesting discharge. She was sent home with the Advair disc she used here as well as Advair disc prescription , Prednisone 40 mg for four days and albuterol inhaler.
[2018-04-25] MEDS: Albuterol/Ipratropium 3.0-0.5 MG/3 ML Neb Soln NEB SCH ×3 (00:16→11:16)
[2018-04-25] MEDS: methylPREDNISolone Sodium Succinate 125 MG/2 ML SDV IVPUSH SCH ×2 (04:38→12:49)
[2018-04-25] MEDS ORDERED: Fluticasone/Salmeterol 250-50 MCG Inhalation Powder 14/Diskus INH SCH (09:00)
[2018-04-25 13:36] VITALS: BP 117/70
--- NOTE | 2018-04-27 17:41 | CR ---
EXAM DATE: 04/24/18 PATIENT'S AGE: 47 Patient: SERGIO HEREDIA Facility: [place], [place] Site . Site : [id number] Study: XRay Chest [id number]/6/2018 9:28:08 PM Ordering Physician: Kevon Blcakburn Final Report: INDICATION: SOB TECHNIQUE: Chest 1 view COMPARISON: January 11, 2016 FINDINGS: Cardiovascular and mediastinum: Heart size and vasculature are normal in caliber and appearance. Mediastinum is within normal limits. Lungs and pleural space: No focal consolidation. No sign of pleural effusion. No pneumothorax. Bones and soft tissues: No significant findings. IMPRESSION: No acute cardiopulmonary disease. Dictated by Enmanuel Bangura MD @ 04/24/2018 9:39:39 PM Dictated by: Enmanuel Bangura MD @ 04/24/2018 21:39:44 (Electronic Signature) Report Signed by Proxy. [email or web address]
== END 2018-04-25 13:35 | disposition home or self-care (01) ==
LOC: MW.ED 19:48 → MW.MS 21:12
PROVIDERS: ADMIT Internal Medicine; ATTEND Internal Medicine
DX: J45.901 Unspecified asthma with (acute) exacerbation (principal); I10 Essential (primary) hypertension; Z79.899 Other long term (current) drug therapy
CPT/HCPCS: 36415; 71045; 80048; 80053; 85025; 85027; 94640; 96361; 96374; 96375; 99285; A9270; J1885; J2930; J3475; 96376; 99283; G0378

== ENCOUNTER 2018-10-28 08:04 | Emergency (ER) | payer MEDICAID ==
[2018-10-28] MEDS ORDERED: Albuterol/Ipratropium 3.0-0.5 MG/3 ML Neb Soln ONE (08:05)
[2018-10-28] MEDS ORDERED: Sodium Chloride 0.9% 2.5 ML Syringe FLUSH PRN (08:05)
[2018-10-28] MEDS ORDERED: Sodium Chloride 0.9% 1,000 ML IV ONE (08:05)
[2018-10-28] MEDS ORDERED: methylPREDNISolone Sodium Succinate 125 MG/2 ML SDV IVPUSH ONE (08:05)
[2018-10-28] MEDS ORDERED: Albuterol/Ipratropium 3.0-0.5 MG/3 ML Neb Soln NEB ONE ×2 (08:05→08:37)
[2018-10-28] MEDS ORDERED: Sodium Chloride 0.9% 10 ML Syringe FLUSH PRN (08:05)
--- NOTE | 2018-10-28 08:10 | EDM.PDOC ---
ED HPI GENERAL MEDICAL PROBLEM - General Stated Complaint: ASTHMA ATTACK Time Seen by Provider: 10/28/18 08:05 Source of Information: Reports: Patient History Limitations: Reports: No Limitations - History of Present Illness INITIAL COMMENTS - FREE TEXT/NARRATIVE: History of present illness: []Patient has a history of asthma with several severe attacks that have been treated while in the ED. As per similar complaints in the past patient has been unable to refill her meds. Patient does not attempt to become established with a primary care physician. Review of systems: As per history of present illness and below otherwise all systems reviewed and negative. Past medical history: As per history of present illness and as reviewed below otherwise noncontributory. Surgical history: As per history of present illness and as reviewed below otherwise noncontributory. Social history: No reported history of drug or alcohol abuse. Family history: As per history of present illness and as reviewed below otherwise noncontributory. Physical exam: General: Well developed, well nourished in moderate respiratory distress HEENT: Atraumatic, normocephalic, pupils reactive, negative for conjunctival pallor or scleral icterus, mucous membranes moist, throat clear, neck supple, nontender, trachea midline. Lungs: Bilateral wheezing, chest nontender. Heart: S1S2, regular, negative for clicks, rubs, or JVD. Abdomen: NABS, Soft, nondistended, nontender. Negative for masses or hepatosplenomegaly. Negative for costovertebral tenderness. Pelvis: Stable nontender. Genitourinary: Deferred. Rectal: Deferred. Extremities: Atraumatic, negative for cords or calf pain. Neurovascular unremarkable. Neuro: Awake, alert, oriented. Cranial nerves II through XII unremarkable. Cerebellum unremarkable. Motor and sensory unremarkable throughout. Exam nonfocal. Skin:warm and dry Diagnostics: None Therapeutics: DuoNeb, Solu-Medrol, IV fluids ED Course: Improved Impression: Acute asthma exacerbation, noncompliance Prescriptions: Advair, albuterol solution, albuterol inhaler, prednisone 5 days Plan: Follow-up with primary care Definitive disposition and diagnosis as appropriate pending reevaluation and review of above. Chest Pain Score (Numeric/FACES): 9 - Related Data Allergies Allergy/AdvReac Type Severity Reaction Status Date / Time No Known Allergies Allergy Verified 10/11/18 04:44 Home Meds: Home Meds Albuterol [Ventolin HFA] 2 puff INH Q6H PRN #1 inhaler 02/15/16 [Rx] Albuterol/Ipratropium [DuoNeb 3.0-0.5 MG/3 ML] 1 inh INH ASDIRECTED PRN [History] Albuterol [Proventil Neb Soln] 0.63 mg NEB Q6H PRN #15 neb 10/28/18 [Rx] Albuterol [Ventolin HFA] 2 puff INH Q4HR PRN #1 inhaler 10/28/18 [Rx] Fluticasone/Salmeterol [Advair 250-50] 1 puff INH BID #1 diskus 10/28/18 [Rx] predniSONE [Prednisone] 20 mg PO DAILY #5 tablet 10/28/18 [Rx] Past Medical History HEENT History: Reports: None Cardiovascular History: Reports: Hypertension Respiratory History: Reports: Asthma Gastrointestinal History: Reports: None Genitourinary History: Reports: None 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 Musculoskeletal History: Reports: None Neurological History: Reports: None Psychiatric History: Reports: None Endocrine/Metabolic History: Reports: None Hematologic History: Reports: None Immunologic History: Reports: None Oncologic (Cancer) History: Reports: None Dermatologic History: Reports: None - Infectious Disease History Infectious Disease History: Reports: Chicken Pox - Past Surgical History Head Surgeries/Procedures: Reports: None Respiratory Surgical History: Reports: None Female Surgical History: Reports: Tubal Ligation Social & Family History - Family History Family Medical History: Noncontributory HEENT: Reports: None - Caffeine Use Caffeine Use: Reports: Coffee, Soda - Living Situation & Occupation Living situation: Reports: Occupation: Employed ED ROS GENERAL - Review of Systems Review Of Systems: ROS reveals no pertinent complaints other than HPI. ED EXAM, GENERAL - Physical Exam Exam: See Below (See history of present illness) Course - Vital Signs Last Recorded V/S: Last Vital Signs Temp 98.0 F 10/28/18 08:27 Pulse 87 10/28/18 08:27 Resp 28 H 10/28/18 08:27 BP Pulse Ox 94 L 10/28/18 08:27 - Orders/Labs/Meds Orders: Active Orders 24 hr Category Date Time Status RT Aerosol Therapy [RC] ASDIRECTED Care 10/28/18 08:06 Active RT Aerosol Therapy [RC] ASDIRECTED Care 10/28/18 08:37 Active Sodium Chloride 0.9% [Normal Saline] 1,000 ml Med 10/28/18 08:05 Active IV .Bolus Sodium Chloride 0.9% [Saline Flush] Med 10/28/18 08:05 Active 10 ml FLUSH ASDIRECTED PRN Sodium Chloride 0.9% [Saline Flush] Med 10/28/18 08:05 Active 2.5 ml FLUSH ASDIRECTED PRN Saline Lock Insert [OM.PC] Stat Oth 10/28/18 08:05 Ordered Medication Orders Sodium Chloride (Normal Saline) 1,000 mls @ 999 mls/hr IV .Bolus ONE Stop: 10/28/18 09:05 Last Admin: 10/28/18 08:34 Dose: 999 mls/hr Sodium Chloride (Saline Flush) 10 ml FLUSH ASDIRECTED PRN PRN Reason: Keep Vein Open Sodium Chloride (Saline Flush) 2.5 ml FLUSH ASDIRECTED PRN PRN Reason: Keep Vein Open Meds: Medications Generic Name Dose Route Start Last Admin Trade Name Freq PRN Reason Stop Dose Admin Sodium Chloride 1,000 mls @ 999 mls/hr 10/28/18 08:05 10/28/18 08:34 Normal Saline IV 10/28/18 09:05 999 mls/hr .Bolus ONE Administration Sodium Chloride 10 ml 10/28/18 08:05 Saline Flush FLUSH ASDIRECTED PRN Keep Vein Open Sodium Chloride 2.5 ml 10/28/18 08:05 Saline Flush FLUSH ASDIRECTED PRN Keep Vein Open Discontinued Medications Generic Name Dose Route Start Last Admin Trade Name Freq PRN Reason Stop Dose Admin Albuterol/Ipratropium 3 ml 10/28/18 08:05 10/28/18 08:21 Duoneb 3.0-0.5 Mg/3 Ml NEB 10/28/18 08:06 3 ml ONETIME ONE Administration Albuterol/Ipratropium 3 ml 10/28/18 08:37 10/28/18 08:30 Duoneb 3.0-0.5 Mg/3 Ml NEB 10/28/18 08:38 3 ml ONETIME ONE Administration Methylprednisolone Sodium Succinate 125 mg 10/28/18 08:05 10/28/18 08:35 Solu-Medrol IVPUSH 10/28/18 08:06 125 mg ONETIME ONE Administration Departure - Departure Time of Disposition: 08:42 Disposition: Home, Self-Care 01 Condition: Good Clinical Impression: Acute asthma exacerbation Qualifiers: Asthma severity: moderate Asthma persistence: unspecified Qualified Code(s): J45.901 - Unspecified asthma with (acute) exacerbation - Discharge Information *PRESCRIPTION DRUG MONITORING PROGRAM REVIEWED*: No *COPY OF PRESCRIPTION DRUG MONITORING REPORT IN PATIENT [place]: No Prescriptions: Albuterol [Ventolin HFA] 2 puff INH Q4HR PRN #1 inhaler PRN Reason: Shortness Of Breath Albuterol [Proventil Neb Soln] 0.63 mg NEB Q6H PRN #15 neb PRN Reason: Shortness Of Breath Fluticasone/Salmeterol [Advair 250-50] 1 puff INH BID #1 diskus predniSONE [Prednisone] 20 mg PO DAILY #5 tablet Additional Instructions: The following information is given to patients seen in the emergency department who are being discharged to home. This information is to outline your options for follow-up care. We provide all patients seen in our emergency department with a follow-up referral. The need for follow-up, as well as the timing and circumstances, are variable depending upon the specifics of your emergency department visit. If you don't have a primary care physician on staff, we will provide you with a referral. We always advise you to contact your personal physician following an emergency department visit to inform them of the circumstance of the visit and for follow-up with them and/or the need for any referrals to a consulting specialist. The emergency department will also refer you to a specialist when appropriate. This referral assures that you have the opportunity for follow-up care with a specialist. All of these measure are taken in an effort to provide you with optimal care, which includes your follow-up. Under all circumstances we always encourage you to contact your private physician who remains a resource for coordinating your care. When calling for follow-up care, please make the office aware that this follow-up is from your recent emergency room visit. If for any reason you are refused follow-up, please contact the [facility] Emergency Department at and asked to speak to the emergency department charge nurse. [facility] [address] [place] [address] - My Orders Last 24 Hours: My Active Orders 10/28/18 08:05 Sodium Chloride 0.9% [Normal Saline] 1,000 ml IV .Bolus Sodium Chloride 0.9% [Saline Flush] 10 ml FLUSH ASDIRECTED PRN Sodium Chloride 0.9% [Saline Flush] 2.5 ml FLUSH ASDIRECTED PRN Saline Lock Insert [OM.PC] Stat 10/28/18 08:06 RT Aerosol Therapy [RC] ASDIRECTED 10/28/18 08:37 RT Aerosol Therapy [RC] ASDIRECTED - Assessment/Plan Last 24 Hours: My Active Orders 10/28/18 08:05 Sodium Chloride 0.9% [Normal Saline] 1,000 ml IV .Bolus Sodium Chloride 0.9% [Saline Flush] 10 ml FLUSH ASDIRECTED PRN Sodium Chloride 0.9% [Saline Flush] 2.5 ml FLUSH ASDIRECTED PRN Saline Lock Insert [OM.PC] Stat 10/28/18 08:06 RT Aerosol Therapy [RC] ASDIRECTED 10/28/18 08:37 RT Aerosol Therapy [RC] ASDIRECTED
[2018-10-28 09:41] VITALS: BP 150/107
== END 2018-10-28 09:38 | disposition home or self-care (01) ==
LOC: MW.ED 08:04
DX: J45.901 Unspecified asthma with (acute) exacerbation (principal); I10 Essential (primary) hypertension
CPT/HCPCS: 94640; 96361; 96374; 99284; J2930; J7040; J7620-GY

== ENCOUNTER 2018-12-28 17:01 | Emergency (ER) | payer MEDICAID ==
[2018-12-28] MEDS ORDERED: Albuterol/Ipratropium 3.0-0.5 MG/3 ML Neb Soln ONE (17:05)
[2018-12-28] MEDS ORDERED: Albuterol/Ipratropium 3.0-0.5 MG/3 ML Neb Soln NEB ONE (17:05)
[2018-12-28] MEDS ORDERED: methylPREDNISolone Sodium Succinate 125 MG/2 ML SDV IM ONE (17:10)
--- NOTE | 2018-12-28 17:10 | EDM.PDOC ---
ED HPI GENERAL MEDICAL PROBLEM - General Chief Complaint: Respiratory Problem Stated Complaint: CHEST PAIN Time Seen by Provider: 12/28/18 17:06 Source of Information: Reports: Patient History Limitations: Reports: No Limitations - History of Present Illness INITIAL COMMENTS - FREE TEXT/NARRATIVE: HISTORY AND PHYSICAL: History of present illness: Patient is a 48-year-old female who presents to the emergency room today with complaints of an asthma exacerbation. She states she has been out of her Advair , Ventolin and albuterol nebulizer solution for several days. Woke up this morning with shortness of breath and wheezing. She denies any fever, chills, chest pain, cough. Denies any abdominal pain, nausea, vomiting, diarrhea, constipation or dysuria. She has been able to eat and drink appropriately. Review of systems: As per history of present illness and below otherwise all systems reviewed and negative. Past medical history: As per history of present illness and as reviewed below otherwise noncontributory. Surgical history: As per history of present illness and as reviewed below otherwise noncontributory. Social history: See social history for further information Family history: As per history of present illness and as reviewed below otherwise noncontributory. Physical exam: General: Well-developed and well-nourished 48-year-old female. Alert and oriented. Nontoxic appearing and in no acute distress. HEENT: Atraumatic, normocephalic, pupils equal and reactive bilaterally, negative for conjunctival pallor or scleral icterus, mucous membranes moist, TMs normal bilaterally, throat clear, neck supple, nontender, trachea midline. No drooling or trismus noted. No meningeal signs. No hot potato voice noted. Lungs: Fine expiratory wheezing to posterior base bilaterally, right side greater than left, breath sounds equal bilaterally, chest nontender. Heart: S1S2, regular rate and rhythm without overt murmur Abdomen: Soft, nondistended, nontender. Negative for masses or hepatosplenomegaly. Negative for costovertebral tenderness. Pelvis: Stable nontender. Genitourinary: Deferred. Rectal: Deferred. Skin: Intact, warm, dry. No lesions or rashes noted. Extremities: Atraumatic, moves all extremities per self without difficulty or deficits, negative for cords or calf pain. Neurovascular unremarkable. Neuro: Awake, alert, oriented. Cranial nerves II through XII unremarkable. Cerebellum unremarkable. Motor and sensory unremarkable throughout. Exam nonfocal. Notes: Chest x-ray shows no acute findings. Patient has improved after the DuoNeb and Solu-Medrol injection IM. She states she is out of her home medication for her asthma. We will fill this. Encouraged her to follow-up with her primary care provider for further evaluation and management of her medications. Patient reports that she does have a history of high blood pressure and does not want this further evaluated or managed at this time. Oxygen saturation has improved from 92% to 97 -98% on room air. Supportive care measures were reviewed and discussed. Voices understanding and is agreeable to plan of care. Denies any further questions or concerns at this time. Diagnostics: Chest x-ray Therapeutics: DuoNeb, Solu-Medrol Prescription: Advair Diskus inhaler (refill) DuoNeb solution (refill) Proventil inhaler (refill) Medrol Dosepak Impression: Asthma exacerbation Plan: 1. Your medications were refilled today. Please take them as directed. 2. Follow-up with your primary caregiver as we discussed. 3. Return to the ED as needed and as discussed. Definitive disposition and diagnosis as appropriate pending reevaluation and review of above. - Related Data Allergies Allergy/AdvReac Type Severity Reaction Status Date / Time No Known Allergies Allergy Verified 12/28/18 17:09 Home Meds: Home Meds Albuterol [Ventolin HFA] 2 puff INH Q4HR PRN #1 inhaler 10/28/18 [Rx] Albuterol [Proventil HFA] 2 puff INH Q4H PRN #1 inhaler 12/28/18 [Rx] Fluticasone/Salmeterol [Advair 250-50 Diskus] 1 each IH BID #1 disk.w.dev [Rx] Fluticasone/Salmeterol [Advair 250-50] 1 puff INH BID PRN 12/28/18 [History] Past Medical History HEENT History: Reports: None Cardiovascular History: Reports: Hypertension Respiratory History: Reports: Asthma Gastrointestinal History: Reports: None Genitourinary History: Reports: None 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 Musculoskeletal History: Reports: None Neurological History: Reports: None Psychiatric History: Reports: None Endocrine/Metabolic History: Reports: None Hematologic History: Reports: None Immunologic History: Reports: None Oncologic (Cancer) History: Reports: None Dermatologic History: Reports: None - Infectious Disease History Infectious Disease History: Reports: Chicken Pox - Past Surgical History Head Surgeries/Procedures: Reports: None Respiratory Surgical History: Reports: None Female Surgical History: Reports: Tubal Ligation Social & Family History - Family History Family Medical History: Noncontributory HEENT: Reports: None - Caffeine Use Caffeine Use: Reports: Coffee, Soda - Living Situation & Occupation Living situation: Reports: Occupation: Employed ED ROS GENERAL - Review of Systems Review Of Systems: ROS reveals no pertinent complaints other than HPI. ED EXAM, GENERAL - Physical Exam Exam: See Below (See dictation) Course - Vital Signs Last Recorded V/S: Last Vital Signs Temp 97.1 F 12/28/18 18:42 Pulse 92 12/28/18 18:42 Resp 18 12/28/18 18:42 BP 144/106 H 12/28/18 18:42 Pulse Ox 97 12/28/18 18:42 - Orders/Labs/Meds Orders: Active Orders 24 hr Category Date Time Status RT Aerosol Therapy [RC] ASDIRECTED Care 12/28/18 17:05 Active Meds: Medications Discontinued Medications Generic Name Dose Route Start Last Admin Trade Name Padillaq PRN Reason Stop Dose Admin Albuterol/Ipratropium 3 ml 12/28/18 17:05 12/28/18 17:13 Duoneb 3.0-0.5 Mg/3 Ml NEB 12/28/18 17:06 3 ml ONETIME ONE Administration Albuterol/Ipratropium Confirm 12/28/18 17:05 12/28/18 17:13 Duoneb 3.0-0.5 Mg/3 Ml Administered 12/28/18 17:06 Not Given Dose 3 ml .ROUTE .STK-MED ONE Methylprednisolone Sodium Succinate 125 mg 12/28/18 17:10 12/28/18 17:19 Solu-Medrol IM 12/28/18 17:11 125 mg ONETIME ONE Administration Departure - Departure Time of Disposition: 18:46 Disposition: Home, Self-Care 01 Clinical Impression: Asthma exacerbation Qualifiers: Asthma severity: moderate Asthma persistence: unspecified Qualified Code(s): J45.901 - Unspecified asthma with (acute) exacerbation - Discharge Information Prescriptions: Albuterol [Proventil HFA] 2 puff INH Q4H PRN #1 inhaler PRN Reason: Dyspnea Fluticasone/Salmeterol [Advair 250-50 Diskus] 1 each IH BID #1 disk.w.dev Instructions: Asthma, Adult, [id number] Referrals: PCP,Unknown [Primary Care Provider] - Forms: ED Department Discharge Additional Instructions: The following information is given to patients seen in the emergency department who are being discharged to home. This information is to outline your options for follow-up care. We provide all patients seen in our emergency department with a follow-up referral. The need for follow-up, as well as the timing and circumstances, are variable depending upon the specifics of your emergency department visit. If you don't have a primary care physician on staff, we will provide you with a referral. We always advise you to contact your personal physician following an emergency department visit to inform them of the circumstance of the visit and for follow-up with them and/or the need for any referrals to a consulting specialist. The emergency department will also refer you to a specialist when appropriate. This referral assures that you have the opportunity for follow-up care with a specialist. All of these measure are taken in an effort to provide you with optimal care, which includes your follow-up. Under all circumstances we always encourage you to contact your private physician who remains a resource for coordinating your care. When calling for follow-up care, please make the office aware that this follow-up is from your recent emergency room visit. If for any reason you are refused follow-up, please contact the [facility] Emergency Department at and asked to speak to the emergency department charge nurse. [facility] [address] [place] [id number] [id number] 1. Your medications were refilled today. Please take them as directed. 2. Follow-up with your primary caregiver as we discussed. 3. Return to the ED as needed and as discussed. - My Orders Last 24 Hours: My Active Orders 12/28/18 17:05 RT Aerosol Therapy [RC] ASDIRECTED - Assessment/Plan Last 24 Hours: My Active Orders 12/28/18 17:05 RT Aerosol Therapy [RC] ASDIRECTED
--- NOTE | 2018-12-28 18:38 | CR ---
INDICATION: Cough and shortness of breath for 1 day. COMPARISON: 10/11/2018 FINDINGS: PA and lateral views of the chest were obtained. The lungs remain clear. No focal or diffuse infiltrates are present. The heart remains normal in size. The mediastinum is normal in appearance. The osseous structures are normal in appearance for the patient`s age. IMPRESSION: Normal chest two views. Dictated by Luisito Quezada MD @ Dec 28 2018 6:35PM Signed by Dr. Luisito Quezada @ Dec 28 2018 6:36PM
[2018-12-28 18:42] VITALS: BP 144/106
== END 2018-12-28 18:55 | disposition home or self-care (01) ==
LOC: MW.ED 17:01
DX: J45.901 Unspecified asthma with (acute) exacerbation (principal); Z79.899 Other long term (current) drug therapy
CPT/HCPCS: 71046; 94640; 96372; 99285; J2930; 99283; J7620-GY

== ENCOUNTER 2018-12-31 20:18 | Emergency (ER) | payer MEDICAID ==
[2018-12-31] MEDS ORDERED: Albuterol/Ipratropium 3.0-0.5 MG/3 ML Neb Soln NEB ONE (20:20)
[2018-12-31] MEDS ORDERED: methylPREDNISolone Sodium Succinate 125 MG/2 ML SDV IVPUSH ONE (20:29)
[2018-12-31] MEDS ORDERED: methylPREDNISolone Sodium Succinate 125 MG/2 ML SDV IM ONE (20:32)
--- NOTE | 2018-12-31 20:54 | EDM.PDOC ---
ED HPI GENERAL MEDICAL PROBLEM - General Chief Complaint: Asthma Stated Complaint: SHORTNESS OF BREATH ASTHMA Time Seen by Provider: 12/31/18 20:28 Source of Information: Reports: Patient History Limitations: Reports: No Limitations - History of Present Illness INITIAL COMMENTS - FREE TEXT/NARRATIVE: HISTORY AND PHYSICAL: History of present illness: Patient is a 48-year-old female here with complaint of asthma exacerbation. She was seen in the ED 3 days ago for this, given duoneb and solumedrol IM. She has been out of her inhalers for a while and had them renewed at her recent ED visit but was unable to fill them as she is not able to afford them and does not get paid for another week. She states she was doing okay until today when she became short of breath again and wheezy. She denies fevers, chills, nausea, vomiting, diarrhea, chest pain, abdominal pain. Chest x-ray done 3 days ago was unremarkable. Review of systems: As per history of present illness and below otherwise all systems reviewed and negative. Past medical history: As per history of present illness and as reviewed below otherwise noncontributory. Surgical history: As per history of present illness and as reviewed below otherwise noncontributory. Social history: No reported history of drug or alcohol abuse. Family history: As per history of present illness and as reviewed below otherwise noncontributory. Physical exam: General: Patient sitting comfortably in no acute distress and nontoxic appearing. Speaking clearing without breathlessness. HEENT: Atraumatic, normocephalic, pupils reactive, negative for conjunctival pallor or scleral icterus, mucous membranes moist, throat clear, neck supple, nontender, trachea midline. No meningeal signs. Lungs: Breath sounds diminished throughout all lung kong with end-expiratory wheezing noted. chest nontender. Heart: S1S2, regular, negative for clicks, rubs, or overt murmur. Abdomen: Soft, nondistended, nontender. Negative for masses or hepatosplenomegaly. Negative for costovertebral tenderness. No rigidity, rebound , guarding. Pelvis: Stable nontender. Genitourinary: Deferred. Rectal: Deferred. Extremities: Atraumatic, negative for cords or calf pain. Neurovascular unremarkable. Neuro: Awake, alert, oriented. Cranial nerves II through XII unremarkable. Cerebellum unremarkable. Motor and sensory unremarkable throughout. Exam nonfocal. Notes: Patient feels improved with therapeutics. Lungs sounds clear. Patient was able to get instymed prescription for Ventolin inhaler and medrol dosepak free of charge. Patient is aware of elevated blood pressure and declines further evaluation of this at this time. Diagnostics: None Therapeutics: DuoNeb Solumedrol IM Prescriptions: Ventolin inhaler Medrol dosepak Impression: Acute asthma exacerbation Plan: 1. Use inhaler and take medrol dosepak as instructed 2. Follow up with primary care provider 3. Return to ED as needed as discussed Definitive disposition and diagnosis as appropriate pending reevaluation and review of above. - Related Data Allergies Allergy/AdvReac Type Severity Reaction Status Date / Time No Known Allergies Allergy Verified 12/31/18 20:22 Home Meds: Home Meds Albuterol [Ventolin HFA] 2 puff INH Q4HR PRN #1 inhaler 10/28/18 [Rx] Albuterol [Proventil HFA] 2 puff INH Q4H PRN #1 inhaler 12/28/18 [Rx] Fluticasone/Salmeterol [Advair 250-50 Diskus] 1 each IH BID #1 disk.w.dev [Rx] Fluticasone/Salmeterol [Advair 250-50] 1 puff INH BID PRN 12/28/18 [History] Past Medical History HEENT History: Reports: None Cardiovascular History: Reports: Hypertension Respiratory History: Reports: Asthma Gastrointestinal History: Reports: None Genitourinary History: Reports: None 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 Musculoskeletal History: Reports: None Neurological History: Reports: None Psychiatric History: Reports: None Endocrine/Metabolic History: Reports: None Hematologic History: Reports: None Immunologic History: Reports: None Oncologic (Cancer) History: Reports: None Dermatologic History: Reports: None - Infectious Disease History Infectious Disease History: Reports: Chicken Pox - Past Surgical History Head Surgeries/Procedures: Reports: None Respiratory Surgical History: Reports: None Female Surgical History: Reports: Tubal Ligation Social & Family History - Family History Family Medical History: Noncontributory HEENT: Reports: None - Tobacco Use Smoking Status *Q: Never Smoker - Caffeine Use Caffeine Use: Reports: Coffee, Soda - Recreational Drug Use Recreational Drug Use: No - Living Situation & Occupation Living situation: Reports: Occupation: Employed ED ROS GENERAL - Review of Systems Review Of Systems: ROS reveals no pertinent complaints other than HPI. ED EXAM, GENERAL - Physical Exam Exam: See Below (See dictation) Course - Vital Signs Last Recorded V/S: Last Vital Signs Temp 97.0 F 12/31/18 20:20 Pulse 77 12/31/18 20:20 Resp 20 12/31/18 20:20 BP 165/106 H 12/31/18 20:20 Pulse Ox 98 12/31/18 20:29 - Orders/Labs/Meds Orders: Active Orders 24 hr Category Date Time Status RT Aerosol Therapy [RC] ASDIRECTED Care 12/31/18 20:20 Active Meds: Medications Discontinued Medications Generic Name Dose Route Start Last Admin Trade Name Padillaq PRN Reason Stop Dose Admin Albuterol/Ipratropium 3 ml 12/31/18 20:20 12/31/18 20:29 Duoneb 3.0-0.5 Mg/3 Ml NEB 12/31/18 20:21 3 ml ONETIME ONE Administration Methylprednisolone Sodium Succinate 125 mg 12/31/18 20:29 12/31/18 20:33 Solu-Medrol IVPUSH 12/31/18 20:30 Not Given ONETIME ONE Methylprednisolone Sodium Succinate 125 mg 12/31/18 20:32 Solu-Medrol IM 12/31/18 20:33 ONETIME ONE Departure - Departure Time of Disposition: 21:25 Disposition: Home, Self-Care 01 Condition: Good Clinical Impression: Asthma exacerbation Qualifiers: Asthma severity: moderate Asthma persistence: unspecified Qualified Code(s): J45.901 - Unspecified asthma with (acute) exacerbation - Discharge Information Referrals: PCP,None [Primary Care Provider] - Forms: ED Department Discharge Additional Instructions: The following information is given to patients seen in the emergency department who are being discharged to home. This information is to outline your options for follow-up care. We provide all patients seen in our emergency department with a follow-up referral. The need for follow-up, as well as the timing and circumstances, are variable depending upon the specifics of your emergency department visit. If you don't have a primary care physician on staff, we will provide you with a referral. We always advise you to contact your personal physician following an emergency department visit to inform them of the circumstance of the visit and for follow-up with them and/or the need for any referrals to a consulting specialist. The emergency department will also refer you to a specialist when appropriate. This referral assures that you have the opportunity for follow-up care with a specialist. All of these measure are taken in an effort to provide you with optimal care, which includes your follow-up. Under all circumstances we always encourage you to contact your private physician who remains a resource for coordinating your care. When calling for follow-up care, please make the office aware that this follow-up is from your recent emergency room visit. If for any reason you are refused follow-up, please contact the [facility] Emergency Department at and asked to speak to the emergency department charge nurse. [facility] [address] [place] [id number] [place] [address] 1. Use inhaler and take medrol dosepak as instructed 2. Follow up with primary care provider 3. Return to ED as needed as discussed - My Orders Last 24 Hours: My Active Orders 12/31/18 20:20 RT Aerosol Therapy [RC] ASDIRECTED - Assessment/Plan Last 24 Hours: My Active Orders 12/31/18 20:20 RT Aerosol Therapy [RC] ASDIRECTED
[2018-12-31 21:49] VITALS: BP 160/111
== END 2018-12-31 21:45 | disposition home or self-care (01) ==
LOC: MW.ED 20:18
DX: J45.901 Unspecified asthma with (acute) exacerbation (principal); I10 Essential (primary) hypertension; Z79.899 Other long term (current) drug therapy
CPT/HCPCS: 94640; 96372; 99284; J2930; 99283; J7620-GY

== ENCOUNTER 2019-01-21 04:25 | Emergency (ER) | payer MEDICAID ==
[2019-01-21] MEDS ORDERED: Albuterol/Ipratropium 3.0-0.5 MG/3 ML Neb Soln ONE (04:27)
[2019-01-21] MEDS ORDERED: methylPREDNISolone Sodium Succinate 125 MG/2 ML SDV IM ONE (04:31)
[2019-01-21] MEDS ORDERED: Albuterol/Ipratropium 3.0-0.5 MG/3 ML Neb Soln NEB ONE (04:34)
--- NOTE | 2019-01-21 04:35 | EDM.PDOC ---
ED HPI GENERAL MEDICAL PROBLEM - General Chief Complaint: Asthma Stated Complaint: ASTHMA ATTACK Time Seen by Provider: 01/21/19 04:27 - History of Present Illness INITIAL COMMENTS - FREE TEXT/NARRATIVE: HISTORY AND PHYSICAL: History of present illness: The patient is a 48-year-old female with a long-standing history of asthma who was had multiple visits to the ED for asthma related issues and medication refills and has not connected with anybody in our clinic and presents with a one to two-day history of increasing dry hacking cough wheezing and asthma symptoms. She denies any fever or chest pain abdominal pain vomiting or diarrhea says this is not an infectious process but it is her asthma. She says she ran out of her rescue inhaler one day ago and needed a refill anyway but was using it more frequently. She has a nebulizer machine at home and did do an albuterol neb but did not feel like it worked very well. She is currently staying with a friend who has animals which seemed to be triggering her asthma. Patient does not smoke cigarettes and tells me that she is planning on going back to her prior home in [facility] in less than a week. She does admit she drinks a lot of caffeinated products. Patient tells me that she does have a spacer to use with her inhalers Review of systems: As per history of present illness and below otherwise all systems reviewed and negative. Past medical history: As per history of present illness and as reviewed below otherwise noncontributory. Surgical history: As per history of present illness and as reviewed below otherwise noncontributory. Social history: No reported history of drug or alcohol abuse. Family history: As per history of present illness and as reviewed below otherwise noncontributory. Physical exam: General: Well-developed well-nourished female who is nontoxic and speaks without breathlessness but has a dry hacking cough appreciated in the ED. Vital signs are also noted by me with her initial O2 sat 89-91 on my evaluation HEENT: Atraumatic, normocephalic, negative for conjunctival pallor or scleral icterus, mucous membranes moist, throat clear, neck supple, nontender, trachea midline. There is no cervical adenopathy or nuchal rigidity Lungs: There is good air exchange in all lung kong with expiratory wheezing and occasional rhonchi, there is no stridor or work of breathing breath sounds equal bilaterally, chest nontender. Heart: S1S2, regular rate and rhythm no overt murmurs Abdomen: Soft, nondistended, nontender. NABS Pelvis: Deferred Genitourinary: Deferred. Rectal: Deferred. Extremities: Atraumatic, negative for cords or calf pain, no pedal edema. Neurovascular unremarkable. Neuro: Awake, alert, oriented. Cranial nerves II through XII unremarkable. Cerebellum unremarkable. Motor and sensory unremarkable throughout. Exam nonfocal. Diagnostics: [] Therapeutics: DuoNeb Solu-Medrol IM After the DuoNeb here the patient is moving air more easily and has only a fine expiratory wheeze and is much clearer. She says she feels much improved. Repeat O2 sat after one DuoNeb is 95%. We'll give the patient a prescription for a refill rescue inhaler as well as duo nebs for home. Impression: Acute asthma exacerbation Definitive disposition and diagnosis as appropriate pending reevaluation and review of above. - Related Data Allergies Allergy/AdvReac Type Severity Reaction Status Date / Time No Known Allergies Allergy Verified 01/21/19 04:31 Home Meds: Home Meds Albuterol [Ventolin HFA] 2 puff INH Q4HR PRN #1 inhaler 10/28/18 [Rx] Albuterol [Proventil HFA] 2 puff INH Q4H PRN #1 inhaler 12/28/18 [Rx] Fluticasone/Salmeterol [Advair 250-50 Diskus] 1 each IH BID #1 disk.w.dev [Rx] Fluticasone/Salmeterol [Advair 250-50] 1 puff INH BID PRN 12/28/18 [History] Past Medical History HEENT History: Reports: None Cardiovascular History: Reports: Hypertension Respiratory History: Reports: Asthma Gastrointestinal History: Reports: None Genitourinary History: Reports: None 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 Musculoskeletal History: Reports: None Neurological History: Reports: None Psychiatric History: Reports: None Endocrine/Metabolic History: Reports: None Hematologic History: Reports: None Immunologic History: Reports: None Oncologic (Cancer) History: Reports: None Dermatologic History: Reports: None - Infectious Disease History Infectious Disease History: Reports: Chicken Pox - Past Surgical History Head Surgeries/Procedures: Reports: None Respiratory Surgical History: Reports: None Female Surgical History: Reports: Tubal Ligation Social & Family History - Family History Family Medical History: Noncontributory HEENT: Reports: None - Caffeine Use Caffeine Use: Reports: Coffee, Soda - Living Situation & Occupation Living situation: Reports: Occupation: Employed ED ROS GENERAL - Review of Systems Review Of Systems: ROS reveals no pertinent complaints other than HPI. ED EXAM, GENERAL - Physical Exam Exam: See Below (see dictation) Course - Vital Signs Last Recorded V/S: Last Vital Signs Temp 35.7 C 01/21/19 04:28 Pulse 105 H 01/21/19 04:28 Resp 28 H 01/21/19 04:28 BP 158/94 H 01/21/19 04:28 Pulse Ox 89 L 01/21/19 04:28 - Orders/Labs/Meds Meds: Medications Discontinued Medications Generic Name Dose Route Start Last Admin Trade Name Anuj PRN Reason Stop Dose Admin Albuterol/Ipratropium Confirm 01/21/19 04:27 01/21/19 04:34 Duoneb 3.0-0.5 Mg/3 Ml Administered 01/21/19 04:28 Not Given Dose 3 ml .ROUTE .STK-MED ONE Albuterol/Ipratropium 3 ml 01/21/19 04:34 01/21/19 04:28 Duoneb 3.0-0.5 Mg/3 Ml NEB 01/21/19 04:35 3 ml ONETIME ONE Administration Methylprednisolone Sodium Succinate 125 mg 01/21/19 04:31 01/21/19 04:38 Solu-Medrol IM 01/21/19 04:32 125 mg ONETIME ONE Administration Departure - Departure Time of Disposition: 05:03 Disposition: Home, Self-Care 01 Condition: Good Clinical Impression: Acute asthma exacerbation Qualifiers: Asthma severity: moderate Asthma persistence: unspecified Qualified Code(s): J45.901 - Unspecified asthma with (acute) exacerbation - Discharge Information Instructions: Asthma, Adult, [id number] Referrals: PCP,None [Primary Care Provider] - Forms: ED Department Discharge Additional Instructions: The following information is given to patients seen in the emergency department who are being discharged to home. This information is to outline your options for follow-up care. We provide all patients seen in our emergency department with a follow-up referral. The need for follow-up, as well as the timing and circumstances, are variable depending upon the specifics of your emergency department visit. If you don't have a primary care physician on staff, we will provide you with a referral. We always advise you to contact your personal physician following an emergency department visit to inform them of the circumstance of the visit and for follow-up with them and/or the need for any referrals to a consulting specialist. The emergency department will also refer you to a specialist when appropriate. This referral assures that you have the opportunity for followup care with a specialist. All of these measure are taken in an effort to provide you with optimal care, which includes your followup. Under all circumstances we always encourage you to contact your private physician who remains a resource for coordinating your care. When calling for followup care, please make the office aware that this follow-up is from your recent emergency room visit. If for any reason you are refused follow-up, please contact the [facility] emergency department at and ask to speak to the emergency department charge nurse. [facility] Primary care- [place] [address] Push hydration and try to reduce caffeinated products. Please use your baseline inhalers and also use the rescue inhaler or a DuoNeb in your nebulizer machine for the next 2 days and then every 6 hours as needed. Please take the prednisone you've been prescribed as directed. Please call and schedule a follow -up appointment with your provider at home in [facility] or with one of our clinic for reevaluation and further care. Return to ER as needed and as discussed.
[2019-01-21 05:02] VITALS: BP 126/85
== END 2019-01-21 05:10 | disposition home or self-care (01) ==
LOC: MW.ED 04:25
DX: J45.901 Unspecified asthma with (acute) exacerbation (principal); I10 Essential (primary) hypertension; Z98.51 Tubal ligation status
CPT/HCPCS: 94640; 96372; 99284; J2930; 99283; J7620-GY

== ENCOUNTER 2019-02-01 02:48 | Emergency (ER) | payer MEDICAID ==
[2019-02-01] MEDS ORDERED: Albuterol/Ipratropium 3.0-0.5 MG/3 ML Neb Soln ONE (02:51)
[2019-02-01] MEDS ORDERED: Albuterol/Ipratropium 3.0-0.5 MG/3 ML Neb Soln NEB ONE (02:53)
[2019-02-01] MEDS ORDERED: predniSONE 20 MG Tab PO ONE (02:53)
--- NOTE | 2019-02-01 03:00 | EDM.PDOC ---
ED HPI GENERAL MEDICAL PROBLEM - General Chief Complaint: Asthma Stated Complaint: ASTHMA ATTACK Time Seen by Provider: 02/01/19 02:50 - History of Present Illness INITIAL COMMENTS - FREE TEXT/NARRATIVE: HISTORY AND PHYSICAL: History of present illness: Patient is a 48-year-old female with a long-standing history of asthma who keeps presenting to her ED and is noncompliant with follow-up, she keeps saying that she is going back to [place] and or that she cannot connect with the clinic. She presents tonight with symptoms of an upper respiratory tract infection with nasal congestion and cough with phlegm over the last few days which triggered her asthma. I saw her just 10 days ago on January 21 for similar presentation and she told me at that time she was going back home to [facility]. That did not happen. On that visit she was given a DuoNeb as well as an inhaler for home with a spacer and steroid treatment. She said that she finished that steroid burst and was doing well until these new symptoms. She does not smoke cigarettes and is not on any long-term preventative therapy. I discussed with her that today is her fifth visit this year alone and she had at least 5 visits last year as well without any clinic follow-up. She says she states understanding. Eating and drinking normally and is not having vomiting or diarrhea Review of systems: As per history of present illness and below otherwise all systems reviewed and negative. Past medical history: As per history of present illness and as reviewed below otherwise noncontributory. Surgical history: As per history of present illness and as reviewed below otherwise noncontributory. Social history: No reported history of drug or alcohol abuse. Family history: As per history of present illness and as reviewed below otherwise noncontributory. Physical exam: General: Well-developed well-nourished thin female who is nontoxic and having a dry hacking cough in the ED. Vital signs are noted by me HEENT: Atraumatic, normocephalic, negative for conjunctival pallor or scleral icterus, mucous membranes moist, throat clear, neck supple, nontender, trachea midline. Lungs: Coarse breath sounds bilaterally with scattered wheezing and moderately good air exchange throughout but she keeps having a spastic cough, there is no stridor or overt worker breathing, breath sounds equal bilaterally, chest nontender. Heart: S1S2, regular rate and rhythm no overt murmurs Abdomen: Soft, nondistended, nontender. NABS Pelvis: Deferred Genitourinary: Deferred. Rectal: Deferred. Extremities: Atraumatic, negative for cords or calf pain. Neurovascular unremarkable. Neuro: Awake, alert, oriented. Cranial nerves II through XII unremarkable. Cerebellum unremarkable. Motor and sensory unremarkable throughout. Exam nonfocal. Diagnostics: Chest x-ray Therapeutics: DuoNeb prednisone Impression: Acute asthma exacerbation with history of same, follow-up noncompliance Definitive disposition and diagnosis as appropriate pending reevaluation and review of above. - Related Data Allergies Allergy/AdvReac Type Severity Reaction Status Date / Time No Known Allergies Allergy Verified 02/01/19 02:52 Home Meds: Home Meds Albuterol [Ventolin HFA] 2 puff INH Q4HR PRN #1 inhaler 10/28/18 [Rx] Albuterol [Proventil HFA] 2 puff INH Q4H PRN #1 inhaler 12/28/18 [Rx] Fluticasone/Salmeterol [Advair 250-50 Diskus] 1 each IH BID #1 disk.w.dev [Rx] Fluticasone/Salmeterol [Advair 250-50] 1 puff INH BID PRN 12/28/18 [History] Past Medical History HEENT History: Reports: None Cardiovascular History: Reports: Hypertension Respiratory History: Reports: Asthma Gastrointestinal History: Reports: None Genitourinary History: Reports: None 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 Musculoskeletal History: Reports: None Neurological History: Reports: None Psychiatric History: Reports: None Endocrine/Metabolic History: Reports: None Hematologic History: Reports: None Immunologic History: Reports: None Oncologic (Cancer) History: Reports: None Dermatologic History: Reports: None - Infectious Disease History Infectious Disease History: Reports: Chicken Pox - Past Surgical History Head Surgeries/Procedures: Reports: None Respiratory Surgical History: Reports: None Female Surgical History: Reports: Tubal Ligation Social & Family History - Family History Family Medical History: Noncontributory HEENT: Reports: None - Caffeine Use Caffeine Use: Reports: Coffee, Soda - Living Situation & Occupation Living situation: Reports: Occupation: Employed ED ROS GENERAL - Review of Systems Review Of Systems: ROS reveals no pertinent complaints other than HPI. ED EXAM, GENERAL - Physical Exam Exam: See Below (See dictation) Course - Vital Signs Last Recorded V/S: Last Vital Signs Temp 36.4 C 02/01/19 02:50 Pulse 98 02/01/19 02:50 Resp 26 H 02/01/19 02:50 BP 154/103 H 02/01/19 02:50 Pulse Ox 93 L 02/01/19 02:50 - Orders/Labs/Meds Orders: Active Orders 24 hr Category Date Time Status RT Aerosol Therapy [RC] ASDIRECTED Care 02/01/19 02:53 Active Chest 2V [CR] Stat Exams 02/01/19 02:54 Taken Meds: Medications Discontinued Medications Generic Name Dose Route Start Last Admin Trade Name Freq PRN Reason Stop Dose Admin Albuterol/Ipratropium Confirm 02/01/19 02:51 02/01/19 02:57 Duoneb 3.0-0.5 Mg/3 Ml Administered 02/01/19 02:52 Not Given Dose 3 ml .ROUTE .STK-MED ONE Albuterol/Ipratropium 3 ml 02/01/19 02:53 02/01/19 02:56 Duoneb 3.0-0.5 Mg/3 Ml NEB 02/01/19 02:54 3 ml ONETIME ONE Administration Prednisone 40 mg 02/01/19 02:53 02/01/19 02:57 Prednisone PO 02/01/19 02:54 40 mg ONETIME ONE Administration Departure - Departure Time of Disposition: 03:27 Disposition: Home, Self-Care 01 Condition: Good Clinical Impression: Asthma exacerbation Qualifiers: Asthma severity: mild Asthma persistence: unspecified Qualified Code(s): J45.901 - Unspecified asthma with (acute) exacerbation - Discharge Information Forms: ED Department Discharge Additional Instructions: The following information is given to patients seen in the emergency department who are being discharged to home. This information is to outline your options for follow-up care. We provide all patients seen in our emergency department with a follow-up referral. The need for follow-up, as well as the timing and circumstances, are variable depending upon the specifics of your emergency department visit. If you don't have a primary care physician on staff, we will provide you with a referral. We always advise you to contact your personal physician following an emergency department visit to inform them of the circumstance of the visit and for follow-up with them and/or the need for any referrals to a consulting specialist. The emergency department will also refer you to a specialist when appropriate. This referral assures that you have the opportunity for followup care with a specialist. All of these measure are taken in an effort to provide you with optimal care, which includes your followup. Under all circumstances we always encourage you to contact your private physician who remains a resource for coordinating your care. When calling for followup care, please make the office aware that this follow-up is from your recent emergency room visit. If for any reason you are refused follow-up, please contact the [facility] emergency department at and ask to speak to the emergency department charge nurse. [facility] Primary care- Internal Medicine and Family [address] [id number] Please take prednisone as prescribed and use your rescue inhaler with the spacer that you are ready have from the last visit every 6 hours for the next 24 hours and then as needed. You must call and get a schedule follow-up appointment in our clinic as you need to be on more maintenance therapy to prevent these frequent asthma attacks. Push hydration and avoid caffeinated products. Return to ER as needed and as discussed - My Orders Last 24 Hours: My Active Orders 02/01/19 02:53 RT Aerosol Therapy [RC] ASDIRECTED 02/01/19 02:54 Chest 2V [CR] Stat - Assessment/Plan Last 24 Hours: My Active Orders 02/01/19 02:53 RT Aerosol Therapy [RC] ASDIRECTED 02/01/19 02:54 Chest 2V [CR] Stat
[2019-02-01 03:45] VITALS: BP 150/100
--- NOTE | 2019-02-01 11:32 | CR ---
EXAM DATE: 02/01/19 PATIENT'S AGE: 48 Patient: SERGIO HEREDIA Facility: [facility] Site . Site : [id number] Study: XRay-Chest -02/01/2019 3:22:39 AM Ordering Physician: Keri Laws Final Report: Indication: Shortness of breath. Asthma Technique: Chest 2 views Comparison: 12/28/18 Findings/Impression: Cardiovascular and mediastinum: Heart size and vasculature are normal in caliber and appearance. Mediastinum is within normal limits. Lungs and pleural spaces: Lungs are clear. No sign of infiltrate or mass. No sign of pleural effusion. No pneumothorax. Bones and soft tissues: No significant findings. Dictated by David Angel MD @ 02/01/2019 3:24:56 AM Dictated by: David Angel MD @ 02/01/2019 03:25:01 Signed by: David Angel MD @02/01/2019 3:25:01 AM (Electronic Signature) Report Signed by Proxy. JANNIE
== END 2019-02-01 03:44 | disposition home or self-care (01) ==
LOC: MW.ED 02:48
DX: J45.901 Unspecified asthma with (acute) exacerbation (principal); I10 Essential (primary) hypertension; Z79.899 Other long term (current) drug therapy
CPT/HCPCS: 71046; 99285; A9270; 99283; J7620-GY

== ENCOUNTER 2019-02-01 10:42 | Emergency (ER) | payer MEDICAID ==
[2019-02-01] MEDS ORDERED: Magnesium Sulfate/Water 2 GM in Premix Bag 1 BAG IV ONE (10:45)
[2019-02-01] MEDS ORDERED: Sodium Chloride 0.9% 1,000 ML IV ONE (10:45)
[2019-02-01] MEDS ORDERED: methylPREDNISolone Sodium Succinate 125 MG/2 ML SDV IVPUSH ONE (10:45)
[2019-02-01] MEDS ORDERED: LORazepam 2 MG/ML SDV IVPUSH ONE (10:45)
[2019-02-01] MEDS ORDERED: Albuterol/Ipratropium 3.0-0.5 MG/3 ML Neb Soln NEB ONE (10:45)
--- NOTE | 2019-02-01 10:50 | EDM.PDOC ---
ED HPI GENERAL MEDICAL PROBLEM - General Chief Complaint: Respiratory Problem Stated Complaint: TROUBLE BREATHING Time Seen by Provider: 02/01/19 10:48 Source of Information: Reports: Patient - History of Present Illness INITIAL COMMENTS - FREE TEXT/NARRATIVE: HISTORY AND PHYSICAL: History of present illness: [Patient presents for EMS with asthma exacerbation] She arrives via EMS she was brought in from some type of methamphetamine lab possibly from what I'm getting from EMS However she has respiratory failure she was provided albuterol neb and Solu- Medrol 125 mg in route via EMS I repeated DuoNeb Ativan Solu-Medrol and some magnesium on arrival Initial ABG pH of 7.2 and carbon dioxide 60 Review of systems: As per history of present illness and below otherwise all systems reviewed and negative. Past medical history: As per history of present illness and as reviewed below otherwise noncontributory. Surgical history: As per history of present illness and as reviewed below otherwise noncontributory. Social history: No reported history of drug or alcohol abuse. Family history: As per history of present illness and as reviewed below otherwise noncontributory. Physical exam: HEENT: Atraumatic, normocephalic, pupils reactive, negative for conjunctival pallor or scleral icterus, mucous membranes moist, throat clear, neck supple, nontender, trachea midline. Lungs: No breath sounds on arrival breath sounds equal bilaterally, chest nontender. Post above treatment she did have inspiratory wheezing Heart: S1S2, regular, negative for clicks, rubs, or JVD. Abdomen: Soft, nondistended, nontender. Negative for masses or hepatosplenomegaly. Negative for costovertebral tenderness. Pelvis: Stable nontender. Genitourinary: Deferred. Rectal: Deferred. Extremities: Atraumatic, negative for cords or calf pain. Neurovascular unremarkable. Neuro: Awake, alert, oriented. Cranial nerves II through XII unremarkable. Cerebellum unremarkable. Motor and sensory unremarkable throughout. Exam nonfocal. Diagnostics: [CBC CMP UA troponin drug Screen EKG Chest 1 view ABG Cultures ] Therapeutics: NS Solu-Medrol 125 mg IV per EMS, repeated here in the ER Magnesium sulfate 2 g DuoNeb Ativan 1 mg IV Continuous albuterol neb Anesthesia note for complete details intubation Patient is transferred via [employer] flight to [place] Impression: Respiratory failure Status asthmaticus] Intubation Definitive disposition and diagnosis as appropriate pending reevaluation and review of above. - Related Data Allergies Allergy/AdvReac Type Severity Reaction Status Date / Time No Known Allergies Allergy Verified 02/01/19 02:52 Home Meds: Home Meds Albuterol [Ventolin HFA] 2 puff INH Q4HR PRN #1 inhaler 10/28/18 [Rx] Albuterol [Proventil HFA] 2 puff INH Q4H PRN #1 inhaler 12/28/18 [Rx] Fluticasone/Salmeterol [Advair 250-50 Diskus] 1 each IH BID #1 disk.w.dev [Rx] Fluticasone/Salmeterol [Advair 250-50] 1 puff INH BID PRN 12/28/18 [History] Past Medical History HEENT History: Reports: None Cardiovascular History: Reports: Hypertension Respiratory History: Reports: Asthma Gastrointestinal History: Reports: None Genitourinary History: Reports: None 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 Musculoskeletal History: Reports: None Neurological History: Reports: None Psychiatric History: Reports: None Endocrine/Metabolic History: Reports: None Hematologic History: Reports: None Immunologic History: Reports: None Oncologic (Cancer) History: Reports: None Dermatologic History: Reports: None - Infectious Disease History Infectious Disease History: Reports: Chicken Pox - Past Surgical History Head Surgeries/Procedures: Reports: None Respiratory Surgical History: Reports: None Female Surgical History: Reports: Tubal Ligation Social & Family History - Family History Family Medical History: Noncontributory HEENT: Reports: None - Caffeine Use Caffeine Use: Reports: Coffee, Soda - Living Situation & Occupation Living situation: Reports: Occupation: Employed ED ROS GENERAL - Review of Systems Review Of Systems: See Below ED EXAM, GENERAL - Physical Exam Exam: See Below Course - Orders/Labs/Meds Orders: Active Orders 24 hr Category Date Time Status EKG 12 Lead [EKG Documentation Completion] [RC] STAT Care 02/01/19 10:46 Active RT Aerosol Therapy [RC] ASDIRECTED Care 02/01/19 10:45 Active Chest 1V Frontal [CR] Stat Exams 02/01/19 10:46 Taken COMPREHENSIVE METABOLIC PN,CMP [CHEM] Stat Lab 02/01/19 10:50 Received CULTURE BLOOD [BC] Stat Lab 02/01/19 11:13 Ordered CULTURE BLOOD [BC] Stat Lab 02/01/19 11:13 Ordered DRUG SCREEN, URINE [URCHEM] Stat Lab 02/01/19 10:48 Ordered HCG QUALITATIVE,URINE [URCHEM] Stat Lab 02/01/19 10:45 Ordered UA RFX RHONDA AND CULT IF INDIC [URIN] Stat Lab 02/01/19 10:45 Ordered Magnesium Sulfate/Water [Magnesium Sulfate 2 GM in Med 02/01/19 10:45 Active Water 50 ML] 2 gm Premix Bag 1 bag IV ONETIME Sodium Chloride 0.9% [Normal Saline] 1,000 ml Med 02/01/19 10:45 Active IV STAT Blood Culture x2 Reflex Set [OM.PC] Stat Oth 02/01/19 11:13 Ordered Medication Orders Magnesium Sulfate 2 gm/ Premix 50 mls @ 25 mls/hr IV ONETIME ONE Stop: 02/01/19 12:44 Last Admin: 02/01/19 10:57 Dose: 25 mls/hr Sodium Chloride (Normal Saline) 1,000 mls @ 999 mls/hr IV STAT ONE Stop: 02/01/19 11:45 Last Admin: 02/01/19 10:55 Dose: 999 mls/hr Labs: Laboratory Tests 02/01/19 02/01/19 Range/Units 10:45 10:50 WBC 9.71 (4.0-11.0) K/uL RBC 5.42 (4.30-5.90) M/uL Hgb 16.8 H (12.0-16.0) g/dL Hct 47.9 H (36.0-46.0) % MCV 88.4 (80.0-98.0) fL MCH 31.0 (27.0-32.0) pg MCHC 35.1 (31.0-37.0) g/dL RDW Std Deviation 43.4 (28.0-62.0) fl RDW Coeff of Gianluca 13 (11.0-15.0) % Plt Count 290 (150-400) K/uL MPV 9.40 (7.40-12.00) fL Neut % (Auto) 86.3 H (48.0-80.0) % Lymph % (Auto) 12.2 L (16.0-40.0) % Green % (Auto) 0.8 (0.0-15.0) % Eos % (Auto) 0.4 (0.0-7.0) % Baso % (Auto) 0.3 (0.0-1.5) % Neut # (Auto) 8.4 H (1.4-5.7) K/uL Lymph # (Auto) 1.2 (0.6-2.4) K/uL Green # (Auto) 0.1 (0.0-0.8) K/uL Eos # (Auto) 0.0 (0.0-0.7) K/uL Baso # (Auto) 0.0 (0.0-0.1) K/uL Nucleated RBC % 0.0 /100WBC Nucleated RBCs # 0 K/uL ABG pH 7.242 L (7.35-7.45) ABG pCO2 60 H (35-45) mmHG ABG pO2 130 H (75-100) mmHG ABG HCO3 26 (22-26) mEq/L ABG Total CO2 23.0 ABG Base Excess -3.1 L (-2.0-2.0) Meds: Medications Generic Name Dose Route Start Last Admin Trade Name Freq PRN Reason Stop Dose Admin Magnesium Sulfate 2 gm/ Premix 50 mls @ 25 mls/hr 02/01/19 10:45 02/01/19 10: 57 IV 02/01/19 12:44 25 mls/hr ONETIME ONE Administration Sodium Chloride 1,000 mls @ 999 mls/hr 02/01/19 10:45 02/01/19 10:55 Normal Saline IV 02/01/19 11:45 999 mls/hr STAT ONE Administration Discontinued Medications Generic Name Dose Route Start Last Admin Trade Name Freq PRN Reason Stop Dose Admin Albuterol/Ipratropium 3 ml 02/01/19 10:45 Duoneb 3.0-0.5 Mg/3 Ml NEB 02/01/19 10:46 ONETIME ONE Fentanyl Confirm 02/01/19 11:27 Sublimaze Administered 02/01/19 11:28 Dose 100 mcg .ROUTE .STK-MED ONE Propofol Confirm 02/01/19 11:18 Diprivan 100 Ml Administered 02/01/19 11:19 Dose 100 mls @ as directed .ROUTE .STK-MED ONE Lorazepam 1 mg 02/01/19 10:45 02/01/19 10:51 Ativan IVPUSH 02/01/19 10:46 1 mg ONETIME ONE Administration Methylprednisolone Sodium Succinate 125 mg 02/01/19 10:45 02/01/19 11:08 Solu-Medrol IVPUSH 02/01/19 10:46 125 mg ONETIME ONE Administration Midazolam HCl Confirm 02/01/19 11:15 Versed 1 Mg/Ml Administered 02/01/19 11:16 Dose 6 mg .ROUTE .STK-MED ONE Departure - Departure Time of Disposition: 11:39 Disposition: DC/Tfer to Acute Hospital 02 Condition: Serious Clinical Impression: Status asthmaticus - Discharge Information Referrals: PCP,Unknown [Primary Care Provider] - Forms: ED Department Discharge - My Orders Last 24 Hours: My Active Orders 02/01/19 10:45 RT Aerosol Therapy [RC] ASDIRECTED HCG QUALITATIVE,URINE [URCHEM] Stat UA RFX RHONDA AND CULT IF INDIC [URIN] Stat Magnesium Sulfate/Water [Magnesium Sulfate 2 GM in Water 50 ML] 2 gm Premix Bag 1 bag IV ONETIME Sodium Chloride 0.9% [Normal Saline] 1,000 ml IV STAT 02/01/19 10:46 EKG 12 Lead [EKG Documentation Completion] [RC] STAT Chest 1V Frontal [CR] Stat 02/01/19 10:48 DRUG SCREEN, URINE [URCHEM] Stat 02/01/19 10:50 COMPREHENSIVE METABOLIC PN,CMP [CHEM] Stat 02/01/19 11:13 CULTURE BLOOD [BC] Stat CULTURE BLOOD [BC] Stat Blood Culture x2 Reflex Set [OM.PC] Stat - Assessment/Plan Last 24 Hours: My Active Orders 02/01/19 10:45 RT Aerosol Therapy [RC] ASDIRECTED HCG QUALITATIVE,URINE [URCHEM] Stat UA RFX RHONDA AND CULT IF INDIC [URIN] Stat Magnesium Sulfate/Water [Magnesium Sulfate 2 GM in Water 50 ML] 2 gm Premix Bag 1 bag IV ONETIME Sodium Chloride 0.9% [Normal Saline] 1,000 ml IV STAT 02/01/19 10:46 EKG 12 Lead [EKG Documentation Completion] [RC] STAT Chest 1V Frontal [CR] Stat 02/01/19 10:48 DRUG SCREEN, URINE [URCHEM] Stat 02/01/19 10:50 COMPREHENSIVE METABOLIC PN,CMP [CHEM] Stat 02/01/19 11:13 CULTURE BLOOD [BC] Stat CULTURE BLOOD [BC] Stat Blood Culture x2 Reflex Set [OM.PC] Stat
[2019-02-01] MEDS ORDERED: Midazolam 1 MG/ML 2 ML SDV ONE (11:15)
[2019-02-01] MEDS ORDERED: Rocuronium 50 MG/5 ML Vial IVPUSH ONE (11:20)
[2019-02-01] MEDS ORDERED: Midazolam 5 MG/ML SDV IVPUSH ONE (11:20)
[2019-02-01] MEDS ORDERED: fentaNYL 100 MCG/2 ML SDV ONE (11:27)
[2019-02-01] MEDS ORDERED: Albuterol 0.5% 5 MG/ML Neb Soln 20 ML Bottle NEB STA (11:30)
[2019-02-01] MEDS ORDERED: fentaNYL 100 MCG/2 ML SDV IVPUSH ONE (11:30)
--- NOTE | 2019-02-01 11:41 | PCM.SN ---
- Free Text/Narrative Note: Called by ER for intubation for patient with severe asthma. On my arrival the patient is breathing so hard she is unable to communicate verbally. Unable to obtain any other history at this time. RSI performed with the following: Versed 5mg IV Propofol 150mg IV Rocuronium 70mg IV RSI dose Patient is easy to ventilate, DL with Jean 2 yields grade I view. Upper and lower dentures removed and given to nursing. 7.0 cuffed ETT placed with +BBS, + EtCO2. Patient with manual BVM respirations is very tight. RR 20-25 controlled yields EtCO2 48-65. Fentanyl 100mcg IV given after intubation for BP 179/116. Propofol drip at 50mcg/kg/min started based on 60kg. VS Currently, HR 114, RR 22 controlled BVM, SpO2 99% on FiO2 100%, BP 120/79.
[2019-02-01] MEDS ORDERED: Albuterol 0.083% 2.5 MG/3 ML Neb Soln ONE (11:49)
--- NOTE | 2019-02-01 11:51 | CR ---
EXAMINATION: Portable chest radiograph. HISTORY: Shortness of breath. FINDINGS: The trachea is midline. The cardiomediastinal silhouette is within normal limits. No pulmonary infiltrates, effusions or pneumothorax. Endotracheal tube is noted with tip approximately 5 cm from the chandrika just above the clavicles. Osseous structures appear unremarkable. Free air is not excluded underlying the left hemidiaphragm. IMPRESSION: 1. Endotracheal tube noted in good position. 2. Free air is not excluded underlying the left hemidiaphragm, possibly stomach gas.
[2019-02-01] MEDS ORDERED: Sodium Bicarbonate 8.4% 50 MEQ/50 ML Syringe IVPUSH ONE (12:00)
[2019-02-01] MEDS ORDERED: Rocuronium 100 MG/10 ML Syringe IVPUSH ONE (12:06)
[2019-02-01 12:31] LABS: CHLORIDE,CL 105 mmol/L (98-107); SODIUM,NA 139 mmol/L (136-145)
[2019-02-01 20:11] VITALS: BP 123/77
== END 2019-02-01 13:00 ==
LOC: MW.ED 10:42
DX: J96.90 Respiratory failure, unspecified, unspecified whether with hypoxia or hypercapnia (principal); J45.902 Unspecified asthma with status asthmaticus; I10 Essential (primary) hypertension; Z79.899 Other long term (current) drug therapy
CPT/HCPCS: 31500; 36415; 36600; 71045; 80053; 80305; 81001; 81025; 82803; 85025; 87040; 93005; 94640; 96365; 96366; 96375; 99285; J2060; J2250; J2930; J3010; J3475; J7040; 99284; J7620-GY